=== PATIENT | male | born 1960 | race Caucasian/White ===

== ENCOUNTER 2025-01-14 23:17 | Inpatient (IN) | payer MEDICARE, SELFPAY ==
[2025-01-14] VITALS (11 sets, daily range): BP systolic 116–149; BP diastolic 76–94; BMI 24.4; BMI 23.6
[2025-01-14 22:02] LABS: % Basophils 0.2 % (0-2); % Eosinophils 0.9 % (0-6); % Immature Granulocytes 0.5 % (0-0.5); % Lymphocytes 22.3 % (20.5-51.1); % Monocytes 10.4 % (1.7-9.3); % Neutrophils 65.7 % (42.2-75.2); Absolute Eosinophils 0.1 10^3/uL (0-0.7); Absolute Immature Granulocytes 0.1 10^3/uL (0-0.05); Absolute Lymphocytes 2.3 10^3/uL (1.2-3.4); Absolute Monocytes 1.1 10^3/uL (0.1-0.6); Absolute Neutrophils 6.9 10^3/uL (1.4-6.5); Hematocrit 46.2 % (39.0-52.0); Hemoglobin 15.4 g/dL (13.0-18.0); Mean Corp Hgb Conc. 33.3 g/dL (33.0-37.0); Mean Corpuscular Hgb 32.2 pg (27.0-31.0); Mean Corpuscular Volume 96.5 fL (80.0-94.0); Mean Platelet Volume 9.2 fL (7.4-10.4); Nucleated Red Blood Cells % 0 % (-); Platelet Count 294 10^3/uL (130-400); Red Blood Cell Count 4.79 10^6/uL (4.70-6.10); Red Cell Dist. Width 13.8 % (11.5-14.5); White Blood Cell Count 10.5 10^3/uL (4.8-10.8)
[2025-01-14 22:11] LABS: ALT (SGPT) 20 U/L (0-50); AST (SGOT) 28 U/L (17-59); Albumin 3.3 g/dl (3.5-5.0); Alkaline Phosphatase 60 U/L (38-126); Blood Urea Nitrogen 29 mg/dl (9-20); Calcium 7.9 mg/dl (8.4-10.2); Carbon Dioxide 17 mmol/L (22-30); Chloride 105 mmol/L (98-107); Estimated Creatinine Clearance 31 ml/min; Glucose 117 mg/dl (70-99); Potassium 3.9 mmol/L (3.5-5.1); Sodium 134 mmol/L (135-145); Total Bilirubin 0.5 mg/dl (0.2-1.3); Total Protein 5.8 g/dl (6.3-8.2); eGFR 34.08
[2025-01-14 22:13] LABS: INR 0.89; PT 12.4 Sec (11.4-14.6)
--- NOTE | 2025-01-14 22:31 | ED.GENMED ---
History of Present Illness
General
Chief Complaint: Chest Pain
Source: patient
Time Seen by Provider: 01/14/25 22:14
History of Present Illness
History of Present Illness:
64-year-old male presents to the emergency room via ambulance. 911 was called by the patient for left arm numbness and weakness. Patient was Becka walking outside with symptoms develop. He fell and has a abrasion to the bridge of his nose. When
paramedics arrived the patient noted to have some left facial droop slurred speech and left arm weakness. The symptoms have resolved. However en route the patient began complaining of chest pressure. Prehospital EKG was consistent with an
anterior wall UT. Patient denies any previous cardiac history. He will receive 324 mg of aspirin and 1 sublingual nitro by paramedics. The nitro made his chest pain better. He rated it a 2 out of 4 upon arrival. While moving around to get
undressed his chest pain went up in intensity to a 4-5 out of 10. Patient does endorse smoking. He drinks a couple glasses of wine a night. He did have 1-1/2 glasses of wine this evening.
Phy Exam
Physical Exam
Physical Exam:
General: Awake, Alert, Oriented X3. No acute distress. Mildly slurred speech unclear if this is due to wanting or neurologic issue however he has no other focal neurologic findings at my time.
Vitals: unremarkable
Head: Atraumatic
Eyes: Pupils equal, EOMI
Throat: Airway intact, no exudates
Neck: Trachea midline
Lungs: Clear and equal b/l
Heart: Regular rate, no murmurs
Abd: Soft, Nontender, No pulsatile mass
Neuro: Cranial nerves intact, muscle strength equal bilaterally, cerebellar exam normal
Skin: Warm, dry, no rash
Extremities: pulses equal b/l, no edema
Scores
Heart Score for Chest Pain Patients
STEMI patient?: Yes
Course
Orders/Labs/Results
Orders:
Orders
01/14/25 21:48
EKG [Electrocardiogram (*1)] Urgent
Reason for Study: Chest Pain
Cardiac Monitoring- Treatment ONCE
EKG- Treatment ONCE
IV Insert/Care/Rem.- Treatment PRN
O2 Therapy [RESP] Urgent
Titrate/Wean O2 to maintain O2 sat greater than (%): 90
Special Instructions: Maintain sats >/=90%
Pulse Ox/spot Check [RESP] Urgent
Quantity: 1
Special Instructions: ON ROOM AIR
01/14/25 21:51
Complete Blood Count/With Diff Urgent
Comprehensive Metabolic Panel Urgent
Prothrombin Time Urgent
Troponin I Urgent
01/14/25 21:54
CT Head W/o Iv Contrast Stat
Comment:
Reason For Exam: fall
01/14/25 21:55
CT Angio Chest/Abd W/Wo Iv Contrast [CT Chest/abd Angio W/wo Iv Con] Stat
Comment:
Reason For Exam: chest pain, slurred speech, weakness
01/14/25 22:32
Ticagrelor [Brilinta] 180 mg .ROUTE .STK-MED ONE
01/14/25 22:33
Heparin 5,000 units .ROUTE .STK-MED ONE
Abnormal Lab Results
01/14/25 01/14/25 01/14/25
21:51 22:34 22:45
MCV 96.5 H fL
(80.0-94.0)
MCH 32.2 H pg
(27.0-31.0)
Abs Immat Gran (auto) 0.1 H 10^3/uL
(0-0.05)
Absolute Neuts (auto) 6.9 H 10^3/uL
(1.4-6.5)
Absolute Monos (auto) 1.1 H 10^3/uL
(0.1-0.6)
Monocytes % 10.4 H %
(1.7-9.3)
Sodium 134 L mmol/L
(135-145)
Carbon Dioxide 17 L mmol/L
(22-30)
BUN 29 H mg/dl
(9-20)
Creatinine 2.1 H mg/dL
(0.7-1.3)
Glucose 117 H mg/dl
(70-99)
Calcium 7.9 L mg/dl
(8.4-10.2)
Troponin I 3.270 H* ng/ml
Total Protein 5.8 L g/dl
(6.3-8.2)
Albumin 3.3 L g/dl
(3.5-5.0)
POC ACT Low Range 247 H Seconds 297 H Seconds
(116-155) (116-155)
01/14/25
23:04
MCV
MCH
Abs Immat Gran (auto)
Absolute Neuts (auto)
Absolute Monos (auto)
Monocytes %
Sodium
Carbon Dioxide
BUN
Creatinine
Glucose
Calcium
Troponin I
Total Protein
Albumin
POC ACT Low Range 292 H Seconds
(116-155)
01/14/25 21:51
01/14/25 21:51
Vital Signs
Initial and Last Documented VS:
Initial Vital Signs
BP
118/83
01/14/25 21:52
Last Documented Vital Signs
Temp Pulse Resp BP Pulse Ox
97.8 F 79 17 137/84 98
01/14/25 21:57 01/15/25 00:45 01/15/25 00:45 01/15/25 00:27 01/15/25 00:45
MDM/Problems Addressed
Differential Diagnosis Includes:
Aortic dissection, STEMI, hypercoagulable state
MDM/Problems Addressed:
Patient presents to the emergency room with ST elevation on a prehospital EKG. He was a prehospital STEMI alert. He also had focal neurologic findings prehospital. On my neurologic exam here he does not appear to have any focal neurologic
findings. Patient was quickly sent to CAT scan for CT of his head as well as a CTA of the aorta to exclude dissection. Given the fact the patient's neurologic findings have significantly improved or resolved and he continues to have ST elevation
aggressive treatment of his UT seems the appropriate treatment. Therefore patient heparinized given Brilinta and will go to the Pediatric Pathologist. Dr. Giraldo for interventional cardiology came and evaluated the patient and agreed to take him to the Cath
Lab. The delay from prehospital STEMI alert called to getting to the Pediatric Pathologist is related to the need to exclude other serious pathology in particular thoracic dissection or an intracranial bleed. l
*Radiology
Radiology exam reviewed: radiology read reviewed
*Pulse Oximetry
Patient hypoxic: no
*EKG
Interpreted by ED Provider?: Yes
Heart Rate: 71
Rate: normal
Rhythm: sinus
[place]: normal axis
Interval: normal interval
Ischemia: ST elevation (st elevation in v2, v3, v4, aVL with reciprocal changes in inf leads.)
*Laboratory Veterinarian Interpretation
Rate: normal
Interpretation: normal
Rhythm: sinus
*Critical Care Note
Total Time (30-74mins, 75-104mins- exclusive of procedures): 50 min
comment:
Critical care statement: A total of 50 minutes of critical care time was provided for this patient. This includes management of unstable vital signs, evaluation of the patient at bedside, reviewing the patient's pertinent medical records, discussion
with consultants, review of old EKGs and review of pertinent medical records. This time with separate from time utilized to perform the aforementioned documented procedures
Patient Management
Social determinants of health affecting care: Poor outpatient follow-up
ED Attending Note
-
Portions of this chart may have been created with voice recognition software.� Occasional wrong word or��sound alike� substitutions may have occurred due to the inherent limitations of voice recognition software.
Discharge Plan
Departure
Patient Disposition: [facility]EL[facility]
Date of Disposition: 01/14/25
Time of Disposition: 22:31
Admit to: [facility]
Presentation/result/management discussed w/ accepting MD/DO: Dr. Giraldo
Condition: Serious
Discharge Problem:
Acute UT, Brain TIA
Interventions
Interventions:
*Risk Screen - Suicide Last Done: 01/14/25 22:44
*General Assessment Last Done: 01/14/25 22:44
*Neglect/Abuse Screening Last Done: 01/14/25 22:44
ED- Fall Risk Assessment Last Done: 01/14/25 22:07
*ED COVID-19 Vaccine History Last Done: 01/14/25 22:44
*Nursing Disposition Last Done: 01/14/25 22:44
ED- Cardiac Assessment Last Done: 01/14/25 22:07
Discharge Date and Time
Discharge Date/Time: 01/14/25 22:25
[2025-01-14 22:39] LABS: ACT-LR - POC 247 Seconds (116-155)
[2025-01-14 22:50] LABS: ACT-LR - POC 297 Seconds (116-155)
[2025-01-14 23:09] LABS: ACT-LR - POC 292 Seconds (116-155)
--- NOTE | 2025-01-14 23:38 | ITS.CL.CATH ---
Type Copyist - Catheterization
Cardiac Catheterization
Procedure Report:
LEFT HEART CATH AND CORONARY INTERVENTION
Date of Procedure: January 14, 2025
Referring: [facility] Emergency Department
PROCEDURES:
1. Coronary angiography (potential LV apical thrombus on CT scan)
2. Successful stenting of the proximal to mid LAD with a 3.5 x 34 mm Atlantic stent that was implanted at nominal pressures and postdilated to high pressures with a 3.5 mm noncompliant balloon
INDICATION: This is a 64-year-old gentleman with a past medical history notable for hypertension, hyperlipidemia and chronic renal insufficiency who presented to [facility] with an unusual story. He had been out searching for his dog when
he noticed some left arm heaviness and clumsiness. He experienced a transient loss of consciousness. 911 was called. When paramedics arrived they noticed some left arm weakness and facial droop which had resolved by the time he arrived to
[facility]. He also reported substernal chest tightness and a prehospital electrocardiogram was notable for anterior segment ST elevation. A prehospital STEMI alert was activated. Upon arrival the patient's neurologic symptoms had
largely resolved and his electrocardiogram was notable for anterior ST segment elevation as well as ST segment elevation in lead I and aVL. He became chest pain-free but with minimal movement experienced recurrent occurrence of his substernal chest
pressure. Given the neurologic symptoms a stat CT scan of the head and CT angiogram of the chest was performed to exclude an aortic dissection or intracranial bleed. The CT scan of the head demonstrated no evidence of bleed and the CT angiogram of
the chest had no evidence of an aortic dissection. Door to balloon time was somewhat delayed given the need for these additional imaging studies.
ACCESS: Right radial artery, 6 Turkmen sheath
HEMODYNAMICS (mmHg):
AO (s/d, m) : 129/74
CORONARY FINDINGS
Dominance: Right
LEFT MAIN: Normal
LEFT ANTERIOR DESCENDING: The LAD arises normally from the left main. There is a 50% proximal stenosis in the LAD. There is a very eccentric 95% stenosis in the mid LAD involving the origin of a moderate caliber diagonal branch. The remainder of
the LAD has minor irregularities in the distal vessel wraps completely around the apex supplying a significant portion of the inferior wall.
RAMUS: Mild haziness at its ostium. Moderate caliber vessel.
CIRCUMFLEX: The circumflex is a medium caliber nondominant vessel with mild haziness near its origin. The circumflex gives rise to a single terminal obtuse marginal branch.
RIGHT CORONARY: The right coronary artery is a dominant tortuous vessel with only minor irregularities noted over its course. The posterolateral branch is large. The PDA is a medium caliber vessel that is patent
VENTRICULOGRAPHY: Not done due to elevated creatinine and concern for LV apical thrombus
ANGIOPLASTY PROCEDURE DETAIL: Intravenous heparin was administered and the ACT was monitored during the procedure. The patient received a loading dose of aspirin and ticagrelor while in the emergency department.
The origin of the left main was cannulated with a 6 Turkmen EBU 3.5 guiding catheter. Initial attempts at placement of an XB 3.5 were unsuccessful and the guide was changed for an EBU 3.5 catheter which sat in the left main and provided reasonable
support. A short BMW guidewire was advanced across the stenosis in the mid LAD and into the diagonal branch. A long BMW guidewire across the mid LAD stenosis and was advanced to the apical LAD. Primary stenting was performed with placement of a
3.5 x 34 mm Atlantic stent which was implanted at nominal pressures and postdilated with a 3.5 mm noncompliant balloon with a nice angiographic result
RADIATION SUMMARY: Fluoro Time (min): 10.1, Dose (mGy): 412, DAP (Gy.cm2) : 33
CONCLUSIONS
1. Successful stenting of the ostial to mid LAD with a 3.5 x 34 mm Trip stent that was postdilated to high pressures with a 3.5 mm noncompliant balloon
RECOMMENDATIONS
1. Will trend serial troponin levels and obtain fasting lipid profile in the morning. Will need to watch renal function closely given underlying renal insufficiency and baseline creatinine here at [facility] of 2.1 mg/dL
2. Will continue to follow neurologic symptoms. The neurologic symptoms experienced at the onset of the event have resolved
3. Echocardiogram in a.m.
4. High intensity statin therapy
5. Dual antiplatelet therapy for 1 year uninterrupted
Copy to: Dr. Phi Giraldo
[2025-01-14 23:59] LABS: Glucose - Point of Care 120 mg/dl (70-99)
[2025-01-15] VITALS (12 sets, daily range): BP systolic 108–147; BP diastolic 71–101
[2025-01-15] MEDS: NSS 500 IV (00:15)
[2025-01-15] MEDS: LIPITOR 80 MG PO ×2 (00:20→17:30)
--- NOTE | 2025-01-15 00:30 | PTCARENOTE ---
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 Patient A+A+Ox3. No neurological deficits noted. Patient with c/o left hand weakness, numbness and tingling. Neurological assessment completed with two RN's at bedside - Stroke NeuroCheck/NIHSS completed.
NIHSS score 0. Room air. SpO2 98% on right hand/finger. Right radial TR Band intact - Air to be taken out per protocol and documented. Positive circulation, sensation and mobility to right upper extremity. Positive, palpable pulses. No c/o
pain or discomfort. Sinus Rhythm. Heart rate 60-80's. Patient with no c/o chest pain, pressure or discomfort. Normoactive bowel sounds. No BM. No c/o nausea. No vomiting. Voiding clear yellow urine without difficulty in urinal. Bedrest.
IVF 500 ml 0.9% NSS at 100 ml/hr. Assessment as documented.
--- NOTE | 2025-01-15 04:30 | PTCARENOTE ---
0400 TR Band removed by PA for CT Surgery, Blair Wei PA-C. Swollen area proximal to TR Band - Manual pressure applied for 10 minutes. Dressing applied to right radial site. Patient with positive circulation, sensation and mobility to right
upper extremity. Patient resting in bed without difficulty. Assessment/Interventions as documented.
[2025-01-15] MEDS: TYLENOL 650 MG PO (05:00)
--- NOTE | 2025-01-15 06:15 | PTCARENOTE ---
Patient A+A+Ox3. No c/o left arm/hand numbness or tingling. AM lab work collected and sent. Left forearm noted to be slightly swollen and slightly ecchymotic. No c/o pain or discomfort. No c/o chest pain, pressure or discomfort. AM EKG
obtained. Assessment/Interventions as documented.
[2025-01-15 06:29] LABS: Hematocrit 44.5 % (39.0-52.0); Hemoglobin 15.3 g/dL (13.0-18.0); Mean Corp Hgb Conc. 34.4 g/dL (33.0-37.0); Mean Corpuscular Volume 95.9 fL (80.0-94.0); Mean Platelet Volume 9.6 fL (7.4-10.4); Platelet Count 275 10^3/uL (130-400); Red Blood Cell Count 4.64 10^6/uL (4.70-6.10); Red Cell Dist. Width 13.7 % (11.5-14.5); White Blood Cell Count 10.8 10^3/uL (4.8-10.8)
[2025-01-15 06:59] LABS: Blood Urea Nitrogen 27 mg/dl (9-20); Calcium 8.9 mg/dl (8.4-10.2); Carbon Dioxide 16 mmol/L (22-30); Chloride 104 mmol/L (98-107); Estimated Creatinine Clearance 33 ml/min; Glucose 95 mg/dl (70-99); HDL Cholesterol 49 mg/dl; LDL Cholesterol, Calculated 57 mg/dl; Potassium 4.8 mmol/L (3.5-5.1); Sodium 131 mmol/L (135-145); Total Cholesterol 134 mg/dl (50-199); Triglyceride 143 mg/dl (10-149); Very Low Density Lipoprotein 28 mg/dl (0-30); eGFR 36.13
[2025-01-15] MEDS: BUMEX 1 MG PO (08:33)
[2025-01-15] MEDS: LOW STRENGTH ASPIRIN 81 MG PO (08:33)
[2025-01-15] MEDS: TOPROL XL 50 MG PO ×2 (08:33→20:18)
[2025-01-15] MEDS: BRILINTA 90 MG PO ×2 (08:33→20:19)
[2025-01-15] MEDS: PROTONIX 40 MG PO (08:33)
[2025-01-15] MEDS: NORVASC 5 MG PO (08:33)
--- NOTE | 2025-01-15 08:45 | PTCARENOTE ---
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 AAO x 3, tired this am but denies pain. LT hand function 100% but pt states fingers feel 'tight'. NIH completed and 0. SR on monitor. Room air 98%. Pulses palpable. Facial abrasion c,d,i. Will
monitor
[2025-01-15 09:22] LABS: Glycohemoglobin (HgbA1c) 5.3 % (4.0-5.6)
--- NOTE | 2025-01-15 12:11 | W.PN.CARDCBS ---
Today's Communication / Plan
-
Check echo
Given left hand weakness, will ask neurology to evaluate the patient
MRI brain pending
Impression / Plan
-
Assessment:
Presenting with weakness/stroke like symptoms
Anterior STEMI
LAD PCI
Possible LV thrombus
HTN
HLD
CKD
Echo: Pending
Plan:
-Patient called EMS due to left hand numbness/weakness and was identified as having slurred speech
-Prehospital EKG showed acute anterior infarct pattern
-CT head was unremarkable
-CTA chest with no dissection but suggestive of possible LV thrombus
-Patient was taken urgently for invasive coronary angiography and mid LAD culprit lesion was treated with drug-eluting stent
-Medical management of CAD with aspirin/Brilinta/high intensity statin/beta-kingsley
-Check echo to assess LV function and evaluate for LV thrombus
-Eventual cardiac rehab
-In regards to his left hand weakness, patient tells me symptoms are significantly improved but he still feels that his dexterity is decreased in the left hand
-MRI brain pending
-Will ask neurology to evaluate the patient
Progress Note - Inventory Clerk
Subjective
Date of Service: January 15, 2025
Resting comfortably today in the CVICU. No chest discomfort. No shortness of breath, dyspnea on exertion, orthopnea or PND.
Still reporting some numbness and decreased dexterity in the left hand but significantly improved from prior.
Objective
Labs:
01/15/25 06:01
01/15/25 06:01
Labs
Hgb 15.3 g/dL (13.0-18.0) 01/15/25 06:01
Hct 44.5 % (39.0-52.0) 01/15/25 06:01
Plt Count 275 10^3/uL (130-400) 01/15/25 06:01
PT 12.4 Sec (11.4-14.6) 01/14/25 21:51
INR 0.89 01/14/25 21:51
Sodium 131 mmol/L (135-145) L 01/15/25 06:01
Potassium 4.8 mmol/L (3.5-5.1) 01/15/25 06:01
BUN 27 mg/dl (9-20) H 01/15/25 06:01
Creatinine 2.0 mg/dL (0.7-1.3) H 01/15/25 06:01
Glucose 95 mg/dl (70-99) 01/15/25 06:01
Troponins
01/14/25 01/14/25 01/15/25
21:51 23:37 06:01
Troponin I 3.270 H* 3.470 H* 10.000 H* D
Vital Signs and I&O:
Vital Signs
Temp Pulse Resp BP Pulse Ox
98.0 F 68 20 141/80 94
01/15/25 08:00 01/15/25 08:33 01/15/25 08:30 01/15/25 08:33 01/15/25 08:15
Vital Signs
Temp Pulse Resp BP Pulse Ox
98.0 F 68 20 141/80 94
01/15/25 08:00 01/15/25 08:33 01/15/25 08:30 01/15/25 08:33 01/15/25 08:15
Intake & Output
01/13/25 01/14/25 01/15/25 01/16/25
06:59 06:59 06:59 06:59
Intake Total 980 / 980 240 / 240
Output Total 1100 / 1100 350 / 350
Balance -120 / -120 -110 / -110
Physical Exam
Physical Exam
Gen: NAD, AAOx3
HEENT: NC/AT, sclera anicteric
Neck: No JVD
CV: RRR, NL s1/s2, no M/R/G
Lungs: CTAB
Abd: S/ND
Ext: No LE edema
Skin: Warm, dry
Neuro: Non-focal
--- NOTE | 2025-01-15 12:11 | CM ---
Reviewed chart. Met with Mr. Meyer to review discharge plans. He states prior to admission he resides alone in a one story home with three steps to enter. He states prior to admission he was independent with ambulation and adls. He states he
does not have any DME in the home. He states he has a prescription plan with [employer], ([phone]) Telephone call to [employer] to check on coverage for Brilinta 90 mg po bid. His co-pay for 30 day retail is $88.73 and his co-pay for
mail order 90 is $150.00. Once he gets to $2000.00 out of pocket cost he would have a zero co-pay. Reviewed co-pay with him. He feels they maybe to expensive. He would like to review with medical team. Medical work-up in progress. The discharge
plan is to return home when medically stable.
--- NOTE | 2025-01-15 12:16 | CARDSERVLU ---
Echocardiogram with Lumason completed after protocol screening completed. Allergies verified.
Patent IV site: LAC (existing IV)
IV site flushed with 0.9% NaCl pre and post administration.
Diluted bolus method utilized to enhance visualization of ventricular falk.
Total volume given: 3 mL
Patient tolerated all procedures well without complications.
--- NOTE | 2025-01-15 12:54 | CON.NEURO ---
Consultation
Order
Date of Consultation: 01/15/25
Requesting Provider: Yumiko Goodman PA-C
Reason for Consult: Unspecified
Neurology Consultation Note.
HPI: This is a 64-year-old right-handed man who presented to [facility] 01/14/2025 with a fall and left-sided incoordination/weakness according to the patient his symptoms began suddenly around 8 or 9 PM yesterday while watching TV.
The patient initially experienced a 'funny' sensation in the left arm, which then became 'floppy and heavy.' 'I could not hold myself'. Subsequently, the patient developed slurred speech. The left hand weakness has improved significantly. The
speech difficulties have resolved completely. The patient denies any similar episodes in the past.
Concurrent with the onset of symptoms, the patient experienced an unwitnessed fall while walking his dog. He tripped on the deck, striking his nose, and was unable to get up, having to crawl back into the house. The patient denies any prodromal
symptoms prior to the event onset. They report consuming one and a half glasses of wine on the night of the incident.
The patient was not on aspirin prior to admission.
ER VS: 118/83, 72, afebrile.
EKG:NSR, QTc Int : 464 ms
PDMP:none
Labs: Glucose�247�297, hemoglobin A1c�5.3, troponin�3.27�3 0.47�10, LDL�57, creatinine�2.1, sodium�134-131,
CT head wo contrast-mild leukomalacia
According to EMR patient was seen for facial injury on December 26, 2024.
PMH: Melanoma, HTN, DLP, CKD, left kidney atrophy, GERD, BPH
PSH: LAD PTCI (01/14/2025), melanoma resection TURP
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
FH: Not contributory to current presentation
All:NSAIDs
ROS: Constitutional: Negative. Negative for chills, fever and unexpected weight change.
HENT: Positive for hearing impairment and nasal congestion
Eyes: Negative. Negative for photophobia, pain and visual disturbance.
Respiratory: Negative for cough, choking and shortness of breath.
Cardiovascular: Negative for chest pain, palpitations and leg swelling.
Gastrointestinal: Negative for abdominal pain and vomiting.
Endocrine: Negative. Negative for cold intolerance.
Genitourinary: Negative for dysuria, flank pain and urgency.
Musculoskeletal: Negative for back pain, gait problem, neck pain and neck stiffness.
Skin: Positive for nasal and forehead abrasion
Allergic/Immunologic: Negative. Negative for immunocompromised state.
Neurological: Positive for left-sided weakness and transient dysarthria
Psychiatric/Behavioral: Negative for behavioral problems, confusion and hallucinations.
General: Well developed. In no acute distress.
Cardio: Regular rate and rhythm without murmur. Extremities are without cyanosis or edema.
Neuro:
Mental Status: Alert, oriented to person, place. Impaired attention and preserved comprehension good fund of knowledge. Follows complex requests across the midline. Comprehension, naming, and repetition intact.
Cranial Nerves: Pupils are equally round and reactive to light. EOMs full. Visual marquez full to confrontation. No ptosis. No nystagmus. V1-V3 intact to light touch and pinprick bilaterally, symmetric. Face symmetric. Minimal impaired
hearing AU. The palate elevated well. SCMs and traps 5/5. Tongue midline. No dysarthria.
Motor: Normal bulk and tone. No pronator or arm drift. Strength 5/5 throughout. No clonus.
Reflexes: 3 + in UE/LE, Yan's-neg BL.
Sensory: Normal pinprick, vibration and JPS.
Coordination: Reduced fine finger movements of the left no dysmetria or tremor.
Gait: deferred
Left forehead and nasal linear abrasions.
Assessment and Plan:
I. R lacunar syndrome( dysarthria-clumsy hand syndrome)
II. Mild encephalopathy.
III. History of melanoma
IV. Hyperreflexia
V. NSTEMI
-Continue Telemetry monitoring
-Aspiration precautions
-Brain MRI without jacinto
-Would defer antiplatelet management to cardiology
-LDL goal less than 100.
-Please check urine tox, vitamin B12, folate
-Start thiamine
-PT.
-DVT prophylaxis.
I personally reviewed all radiology and labs along with past medical records pertinent to current medical problems. Total time spent in patient care is 60 minutes.
Thank you for allowing us to participate in the care of this patient. We will continue to follow. Please do not hesitate to contact us with any questions or concerns.
Subjective/Objective
Subjective Data
Date of Service: January 15, 2025
Objective Data
Vital Signs
Temp Pulse Resp BP Pulse Ox
36.7 C 68 20 141/80 94
01/15/25 08:00 01/15/25 08:33 01/15/25 08:30 01/15/25 08:33 01/15/25 08:15
Lab Results
01/15/25 06:01
01/15/25 06:01
PT 12.4 Sec (11.4-14.6) 01/14/25 21:51
INR 0.89 01/14/25 21:51
Sodium 131 mmol/L (135-145) L 01/15/25 06:01
Potassium 4.8 mmol/L (3.5-5.1) 01/15/25 06:01
BUN 27 mg/dl (9-20) H 01/15/25 06:01
Glucose 95 mg/dl (70-99) 01/15/25 06:01
Calcium 8.9 mg/dl (8.4-10.2) 01/15/25 06:01
LDL Cholesterol, Calc 57 mg/dl 01/15/25 06:01
Patient Allergies
NSAIDS (Non-Steroidal Anti-Inflamma Allergy (Verified 01/14/25 21:55)
Unknown
Medications
-
Active Medications
Generic Name Dose Route Start Last Admin
Trade Name Freq PRN Reason Stop Dose Admin
Acetaminophen 650 mg 01/14/25 23:18 01/15/25 05:00
Acetaminophen 325 Mg Tablet PO 02/11/25 23:17 650 mg
Q4HPRN PRN Administration
mild pain
Amlodipine Besylate 5 mg 01/15/25 08:00 01/15/25 08:33
Amlodipine 5 Mg Tablet PO 02/12/25 07:59 5 mg
DAILY GOPAL Administration
Aspirin 81 mg 01/15/25 08:00 01/15/25 08:33
Aspirin 81 Mg Chewable Tablet PO 02/12/25 07:59 81 mg
DAILY GOPAL Administration
Atorvastatin Calcium 80 mg 01/14/25 23:30 01/15/25 00:20
Atorvastatin (Lipitor) 80 Mg Tablet PO 02/11/25 23:29 80 mg
QPM GOPAL Administration
Bumetanide 1 mg 01/15/25 08:00 01/15/25 08:33
Bumetanide 1 Mg Tablet PO 02/12/25 07:59 1 mg
DAILY GOPAL Administration
Enoxaparin Sodium 40 mg 01/15/25 18:00
Enoxaparin Sodium 40 Mg/0.4 Ml Syringe SC 02/12/25 17:59
QPM GOPAL
Metoprolol Succinate 50 mg 01/15/25 08:00 01/15/25 08:33
Metoprolol 50 Mg Extended Release Tablet PO 02/12/25 07:59 50 mg
BID GOPAL Administration
Pantoprazole Sodium 40 mg 01/15/25 08:00 01/15/25 08:33
Pantoprazole 40 Mg Delayed Release Tablet PO 02/12/25 07:59 40 mg
DAILY GOPAL Administration
Sodium Chloride 0 flush 01/14/25 23:00
Sodium Chloride 0.9% (Flush) Syringe IV 02/11/25 22:59
PER PROTOCOL GOPAL
Ticagrelor 90 mg 01/15/25 08:00 01/15/25 08:33
Ticagrelor (Brilinta) 90 Mg Tablet PO 02/12/25 07:59 90 mg
BID GOPAL Administration
Home Medications
�Medication �Instructions �Recorded
Vitamin D3 01/15/25
amlodipine 10 mg tablet 10 mg PO DAILY 01/15/25
atorvastatin 20 mg tablet 20 mg PO QPM 01/15/25
bumetanide 1 mg tablet 1 mg PO DAILY 01/15/25
metoprolol tartrate 100 mg tablet 100 mg PO DAILY 01/15/25
sodium bicarbonate 650 mg tablet 650 mg PO DAILY 01/15/25
terazosin 10 mg capsule 10 mg PO QPM 01/15/25
Vital Signs and Labs
-
Vital Signs and Labs:
Vital Signs
Temp Pulse Resp BP Pulse Ox
36.7 C 68 20 141/80 94
01/15/25 08:00 01/15/25 08:33 01/15/25 08:30 01/15/25 08:33 01/15/25 08:15
Lab Results
01/15/25 06:01
01/15/25 06:01
PT 12.4 Sec (11.4-14.6) 01/14/25 21:51
INR 0.89 01/14/25 21:51
Sodium 131 mmol/L (135-145) L 01/15/25 06:01
Potassium 4.8 mmol/L (3.5-5.1) 01/15/25 06:01
BUN 27 mg/dl (9-20) H 01/15/25 06:01
Glucose 95 mg/dl (70-99) 01/15/25 06:01
Calcium 8.9 mg/dl (8.4-10.2) 01/15/25 06:01
LDL Cholesterol, Calc 57 mg/dl 01/15/25 06:01
Medications
-
Medications:
Generic Name Dose Route Start Last Admin
Trade Name Freq PRN Reason Stop Dose Admin
Acetaminophen 650 mg 01/14/25 23:18 01/15/25 05:00
Acetaminophen 325 Mg Tablet PO 02/11/25 23:17 650 mg
Q4HPRN PRN Administration
mild pain
Amlodipine Besylate 5 mg 01/15/25 08:00 01/15/25 08:33
Amlodipine 5 Mg Tablet PO 02/12/25 07:59 5 mg
DAILY GOPAL Administration
Aspirin 81 mg 01/15/25 08:00 01/15/25 08:33
Aspirin 81 Mg Chewable Tablet PO 02/12/25 07:59 81 mg
DAILY GOPAL Administration
Atorvastatin Calcium 80 mg 01/14/25 23:30 01/15/25 00:20
Atorvastatin (Lipitor) 80 Mg Tablet PO 02/11/25 23:29 80 mg
QPM GOPAL Administration
Bumetanide 1 mg 01/15/25 08:00 01/15/25 08:33
Bumetanide 1 Mg Tablet PO 02/12/25 07:59 1 mg
DAILY GOPAL Administration
Enoxaparin Sodium 40 mg 01/15/25 18:00
Enoxaparin Sodium 40 Mg/0.4 Ml Syringe SC 02/12/25 17:59
QPM GOPAL
Metoprolol Succinate 50 mg 01/15/25 08:00 01/15/25 08:33
Metoprolol 50 Mg Extended Release Tablet PO 02/12/25 07:59 50 mg
BID GOPAL Administration
Pantoprazole Sodium 40 mg 01/15/25 08:00 01/15/25 08:33
Pantoprazole 40 Mg Delayed Release Tablet PO 02/12/25 07:59 40 mg
DAILY GOPAL Administration
Sodium Chloride 0 flush 01/14/25 23:00
Sodium Chloride 0.9% (Flush) Syringe IV 02/11/25 22:59
PER PROTOCOL GOPAL
Thiamine HCl 100 mg 01/15/25 14:00
Thiamine 100 Mg Tablet PO 02/12/25 13:59
DAILY GOPAL
Ticagrelor 90 mg 01/15/25 08:00 01/15/25 08:33
Ticagrelor (Brilinta) 90 Mg Tablet PO 02/12/25 07:59 90 mg
BID GOPAL Administration
Home Medications
-
Home Medications
Vitamin D3 01/15/25
amlodipine 10 mg tablet 10 mg PO DAILY 01/15/25
atorvastatin 20 mg tablet 20 mg PO QPM 01/15/25
bumetanide 1 mg tablet 1 mg PO DAILY 01/15/25
metoprolol tartrate 100 mg tablet 100 mg PO DAILY 01/15/25
sodium bicarbonate 650 mg tablet 650 mg PO DAILY 01/15/25
terazosin 10 mg capsule 10 mg PO QPM 01/15/25
--- NOTE | 2025-01-15 13:37 | PTCARENOTE ---
Ambulating at ivan in room and hallway. denies pain. NSR. VSS Assessment unchanged from prior
[2025-01-15] MEDS: VITAMIN B1 PO (14:51)
[2025-01-15 15:41] LABS: Folate 8.6 ng/ml (2.76-20); Vitamin B12 430 pg/ml (239-931)
--- NOTE | 2025-01-15 16:21 | W.PN.HOSP.TC ---
Addendum entered and electronically signed by Rima Leo MD 01/15/25 18:57:
patient did not lose consciousness but fell at home prior to coming in.
Original Note:
Today's Communication/Plan
-
see plan
Assessment / Plan
Assessment / Plan
Mr. Marino Meyer with hx essential HTN, HLD, CKD who presents to the ER by ambulance on 01/14 for sudden onset loss of consciousness, left arm weakness and difficulty ambulating. Upon arrival to the ER, symptoms largely resolved but he complained of
chest pressure and EKG showed STEMI.
HEAD CT 01/14/25
IMPRESSION:
No evidence of acute intracranial abnormality.
CHEST/ABDOMEN CTA 01/14/25
IMPRESSION: Examination is negative for thoracic or abdominal aortic dissection. Examination is negative for aortic aneurysm.
Decreased enhancement of the apex and distal left ventricle, in this patient with reported history of clinical diagnosis of myocardial infarction. There is a rounded focus of decreased enhancement within the left ventricular apex, which is likely
left ventricular thrombus.
Coronary artery calcifications are present. Please correlate with symptoms of and risk factors for coronary artery disease, with further workup as clinically appropriate.
5 mm focus of arterial phase enhancement within the inferior right lobe of the liver. Statistically, small arterial foci of enhancement are very likely benign, and no further imaging follow-up is felt to be needed.
Moderate to severe atrophy of the left kidney. Bilateral patchy scarring of the kidneys.
CARDIAC CATH 01/14/25
CONCLUSIONS
1. Successful stenting of the ostial to mid LAD with a 3.5 x 34 mm Trip stent that was postdilated to high pressures with a 3.5 mm noncompliant balloon
BRAIN MRI 01/15/25
IMPRESSION:
1. MULTIPLE (approximately 10) SMALL ACUTE ISCHEMIC INFARCTS regionally distributed throughout the CORTICAL FLORES MATTER and SUBCORTICAL WHITE MATTER of the RIGHT FRONTAL and PARIETAL LOBES.
2. 2.5 mm chronic lacunar infarct in the right thalamus.
3. Moderate white matter leukoaraiosis in the frontal and parietal lobes.
4. Chronic microvascular ischemic disease in the marilyn.
5. Mild diffuse cerebral and cerebellar volume loss.
6. Severe discogenic degenerative disease at C3/C4 with a moderate-sized disc-osteophyte complex causing mild spinal cord compression and central canal stenosis.
TTE 01/15/25
CONCLUSIONS
1. Mild concentric left ventricular hypertrophy. Moderately reduced left
ventricular systolic function. Estimated left ventricular ejection fraction is
30 to 35% by visual assessment. Hypokinesis of the mid to apical anterior,
anteroseptal and anterolateral falk.
2. Normal right ventricular size and systolic function.
3. No significant valvular abnormalities.
4. No pericardial effusion.
No prior echocardiogram available for comparison.
STEMI
-s/p cardiac cath on 01/14 with stending to mid LAD
-continue aspirin/ Brilinta/ Statin
-continue metoprolol 50XL BID
-appreciate cardiology consult
Multiple small acute ischemic infarcts
-continue aspirin/Brilinta
-monitor on telemetry
-carotid US ordered
-neuro checks
-PT/OT/ST
-appreciate neurology consult
Heart Failure reduced EF
-ASPARAGUS CUTTER Bumex
-EF 30-35% on TTE with WMA
-will need GDMT, follow up further cardiology recommendations
CKD
-ASPARAGUS CUTTER sodium bicarb
DVT PPx lovenox subQ
FULL CODE
51 minutes spent on patient care
Anticipated Discharge: 24 - 48 hours
Subjective/Interval History
-
Date of Service: January 15, 2025
no difficulty speaking
no chest pain
loss of fine motor control left hand
Objective Data
-
Labs:
Laboratory Results
01/15/25
06:01
WBC 10.8
Hgb 15.3
Hct 44.5
Plt Count 275
Sodium 131 L
Potassium 4.8
Chloride 104
Carbon Dioxide 16 L
BUN 27 H
Creatinine 2.0 H
Glucose 95
Calcium 8.9
Vital Signs:
Vital Signs
Temp Pulse Resp BP Pulse Ox
98.2 F 62 16 141/84 96
01/15/25 15:57 01/15/25 13:30 01/15/25 12:00 01/15/25 12:32 01/15/25 15:57
I&O
01/14/25 01/15/25 01/16/25
06:59 06:59 06:59
Intake Total 980 / 980 240 / 240
Output Total 1100 / 1100 750 / 750
Balance -120 / -120 -510 / -510
Review of Systems
-
History Source: Patient
All other systems: Reviewed and negative
Physical Exam
-
General: No Apparent Distress
HEENT: PERRLA
Respiratory: Clear to Auscultation; Negative Wheezes
Cardiac: Regular Rhythm and S1/S2
GI: Soft and Nontender
Musculoskeletal: No Edema
Skin: Warm and Dry; Negative Rash
Neuro: AO x 3 and Other (no facial asymmetry, no pronator drift, 5/5 strength b/l LE, difficulty fine motor LUE )
Psych: Calm
Data Reviewed
-
Diagnostic Radiology: Report Reviewed by me
Labs: Labs Reviewed by me
[2025-01-15 16:29] LABS: Amphetamines Negative (Negative); Barbiturates Negative (Negative); Benzodiazepines Negative (Negative); Buprenorphine Negative (Negative); Cocaine Positive (Negative); Marijuana Negative (Negative); Methadone Negative (Negative); Methamphetamines Negative (Negative); Opiates Negative (Negative); Phencyclidine Negative (Negative); Tricyclic Antidepressants Negative (Negative)
--- NOTE | 2025-01-15 16:37 | W.PN.UPDATE ---
Update Note
Progress Note Update
brain MRI resulted with multiple ~10 acute ischemic infarcts on R, also with evidence of prior lacunar infarcts. reports significant improvement in LUE weakness compared to yesterday. for now on asadilcia. d/w neurology, plan to continue DAPT at
present. will follow rhythm on tele. pre hospital EKG was SR and thus far no atrial arrhythmia noted. discussed findings with patient. will plan to transfer patient to hospitalist service given acute CVAs.
[2025-01-15 16:45] LABS: Fentanyl, Urine Negative (Negative)
[2025-01-15] MEDS: LOVENOX 40 MG SC (17:29)
--- NOTE | 2025-01-15 20:24 | PTCARENOTE ---
Report called to IVU RN at 2009. Pt awake, alert, oriented x 4. Speech clear. Moves all extremities equally. No current c/o L hand weakness or paresthesias. Pt on room air. Sat 97%. SR, rate 67 bpm. Normotensive. BP 108/71. Pt belongings gathered.
Transferred in wheelchair with RN. Scheduled meds given. Pt without c/o pain, dyspnea. Remained on desk monitor during transport.
--- NOTE | 2025-01-15 21:22 | PTCARENOTE ---
[facility] Patient A&Ox3. NIH Scale score 0, Neuro check unremarkable. BP 121/80, NSR 60s-70s, 96% on room air. Patient denies any chest pain at this time. Discussed plan of care for evening. Patient verbalized
understanding. Call smith within reach.
[2025-01-16] VITALS (8 sets, daily range): BP systolic 120–150; BP diastolic 69–93; PULSE 67; O2SAT 98
--- NOTE | 2025-01-16 02:42 | DOWNTIME ---
There was a Taggled Client [employer] Installer Downtime on 01/16/2025 from 0100 to 01/16/2024 at 0235 . Downtime documentation of patient's care, including medication administrations, has been reconciled in the electronic record per guidelines. Refer to the
patient's paper chart under the miscellaneous tab to see printed paper medication records and downtime forms.
[2025-01-16 04:48] LABS: Hematocrit 44.5 % (39.0-52.0); Hemoglobin 15.4 g/dL (13.0-18.0); Mean Corp Hgb Conc. 34.6 g/dL (33.0-37.0); Mean Corpuscular Hgb 32.8 pg (27.0-31.0); Mean Corpuscular Volume 94.9 fL (80.0-94.0); Mean Platelet Volume 9.5 fL (7.4-10.4); Platelet Count 283 10^3/uL (130-400); Red Blood Cell Count 4.69 10^6/uL (4.70-6.10); White Blood Cell Count 9.7 10^3/uL (4.8-10.8)
[2025-01-16 05:11] LABS: Blood Urea Nitrogen 29 mg/dl (9-20); Carbon Dioxide 19 mmol/L (22-30); Chloride 106 mmol/L (98-107); Estimated Creatinine Clearance 29 ml/min; Glucose 107 mg/dl (70-99); Magnesium 2.1 mg/dl (1.6-2.3); Potassium 4.4 mmol/L (3.5-5.1); Sodium 134 mmol/L (135-145); eGFR 30.55
--- NOTE | 2025-01-16 07:51 | W.PN.HOSP.TC ---
Today's Communication/Plan
-
see plan
Assessment / Plan
Assessment / Plan
. Marino Meyer with hx essential HTN, HLD, CKD who presents to the ER by ambulance on 01/14 for sudden onset loss of consciousness, left arm weakness and difficulty ambulating. Upon arrival to the ER, symptoms largely resolved but he complained of
chest pressure and EKG showed STEMI.
HEAD CT 01/14/25
IMPRESSION:
No evidence of acute intracranial abnormality.
CHEST/ABDOMEN CTA 01/14/25
IMPRESSION: Examination is negative for thoracic or abdominal aortic dissection. Examination is negative for aortic aneurysm.
Decreased enhancement of the apex and distal left ventricle, in this patient with reported history of clinical diagnosis of myocardial infarction. There is a rounded focus of decreased enhancement within the left ventricular apex, which is likely
left ventricular thrombus.
Coronary artery calcifications are present. Please correlate with symptoms of and risk factors for coronary artery disease, with further workup as clinically appropriate.
5 mm focus of arterial phase enhancement within the inferior right lobe of the liver. Statistically, small arterial foci of enhancement are very likely benign, and no further imaging follow-up is felt to be needed.
Moderate to severe atrophy of the left kidney. Bilateral patchy scarring of the kidneys.
CARDIAC CATH 01/14/25
CONCLUSIONS
1. Successful stenting of the ostial to mid LAD with a 3.5 x 34 mm Kerman stent that was postdilated to high pressures with a 3.5 mm noncompliant balloon
BRAIN MRI 01/15/25
IMPRESSION:
1. MULTIPLE (approximately 10) SMALL ACUTE ISCHEMIC INFARCTS regionally distributed throughout the CORTICAL FLORES MATTER and SUBCORTICAL WHITE MATTER of the RIGHT FRONTAL and PARIETAL LOBES.
2. 2.5 mm chronic lacunar infarct in the right thalamus.
3. Moderate white matter leukoaraiosis in the frontal and parietal lobes.
4. Chronic microvascular ischemic disease in the marilyn.
5. Mild diffuse cerebral and cerebellar volume loss.
6. Severe discogenic degenerative disease at C3/C4 with a moderate-sized disc-osteophyte complex causing mild spinal cord compression and central canal stenosis.
TTE 01/15/25
CONCLUSIONS
1. Mild concentric left ventricular hypertrophy. Moderately reduced left
ventricular systolic function. Estimated left ventricular ejection fraction is
30 to 35% by visual assessment. Hypokinesis of the mid to apical anterior,
anteroseptal and anterolateral falk.
2. Normal right ventricular size and systolic function.
3. No significant valvular abnormalities.
4. No pericardial effusion.
No prior echocardiogram available for comparison.
STEMI
-s/p cardiac cath on 01/14 with stending to mid LAD
-continue aspirin/ Brilinta/ Statin
-continue metoprolol 50XL BID
-appreciate cardiology consult
Multiple small acute ischemic infarcts
-continue aspirin/Brilinta
-monitor on telemetry
-carotid US ordered
-neuro checks
-PT/OT/ST
-appreciate neurology consult
Heart Failure reduced EF
-[employer]PLICATION DEVELOPER Bumex
-EF 30-35% on TTE with WMA
-will need GDMT, follow up further cardiology recommendations
CKD
-[employer] APPLICATION DEVELOPER sodium bicarb
DVT PPx lovenox subQ - adjust for renal function
FULL CODE
51 minutes spent on patient care
Anticipated Discharge: 24 - 48 hours
Subjective/Interval History
-
Date of Service: January 16, 2025
no new complaints
feels coordination of left hand improving
no chest pain
Objective Data
-
Labs:
Laboratory Results
01/16/25
04:33
WBC 9.7
Hgb 15.4
Hct 44.5
Plt Count 283
Sodium 134 L
Potassium 4.4
Chloride 106
Carbon Dioxide 19 L
BUN 29 H
Creatinine 2.3 H
Glucose 107 H
Calcium 9.0
Vital Signs:
Vital Signs
Temp Pulse Resp BP Pulse Ox
98.4 F 63 20 130/85 97
01/16/25 07:39 01/16/25 06:00 01/16/25 07:39 01/16/25 04:01 01/16/25 07:39
I&O
01/15/25 01/16/25 01/17/25
06:59 06:59 06:59
Intake Total 980 / 980 240 / 240
Output Total 1100 / 1100 750 / 750
Balance -120 / -120 -510 / -510
Review of Systems
-
History Source: Patient
All other systems: Reviewed and negative
Physical Exam
-
General: No Apparent Distress
HEENT: PERRLA
Respiratory: Clear to Auscultation; Negative Wheezes
Cardiac: Regular Rhythm and S1/S2
GI: Soft and Nontender
Musculoskeletal: No Edema
Skin: Warm and Dry; Negative Rash
Neuro: AO x 3 and Other (no facial asymmetry, no pronator drift, 5/5 strength b/l LE, finger to thumb left hand improving )
Psych: Calm
Data Reviewed
-
Diagnostic Radiology: Report Reviewed by me
Labs: Labs Reviewed by me
--- NOTE | 2025-01-16 08:06 | W.PN.CARDCBS ---
Addendum entered and electronically signed by Phi Giraldo MD 01/16/25 10:33:
Attending addendum: Patient seen and examined. PA note reviewed and findings confirmed by me. Patient tells me that he will use cocaine a few times per year. He last used this past weekend. He also tells me that his baseline creatinine runs
around 3 mg/dl and was as high as 12 mg/dl when diagnosed several years ago. He follows with nephrology Dr. Lisa Mann about 1x every 4 months.
PE:
Gen: Lying in bed. NAD
HEENT: NC/AT, sclera anicteric
Lungs: Clear anterior and lateral
CV: RRR with normal S1 and S2.
Ext: no edema
IMPRESSION / RECOMMENDATIONS:
-Anterior wall myocardial infarction s/p LAD stent. Recent cocaine use
Brilinta is cost prohibitive : Will hold Brilinta today and start Plavix tomorrow with 600 mg loading dose approximately 24-hours after last Brilinta followed by 75 mg daily
Anterior wall motion abnormality with an estimated EF of 30-35%
High intensity statin therapy
Concern discussed with patient re: cocaine use and additive effect of beta blockade and unopposed alpha. Needs to stop cocaine for soooooo many reasons and never ever use again!!!! I was quite explicit and forceful in this discussion
CT possibly suggestive of apical filling defect that was not well appreciated on echo w Definity contrast
-Right sided CVA:
neurologic symptoms present prior to presentation
If there is concern for LV thrombus then oral AC would be reasonable. However, he would then need aspirin / Plavix / OAC for at least 1-2 weeks followed by Plavix and OAC
Will discuss with neurology and be sure they are comfortable with whatever antiplatelet / OAC strategy that is chosen
-Ischemic cardiomyopathy:
LVEF 30-35% will need to be reassessed in 40-days for ICD consideration
Baseline creatinine per his report is around 3 mg/dl and has been as high as 12 mg/dl several years ago. We will try to get records from nephrology. This may limit our ability to treat LV dysfunction with GUADALUPE/ARB or spironolactone.
Oral beta kingsley has continued. Certainly there is concern for beta kingsley and cocaine
May consider hydralazine and nitrates for HF vs GUADALUPE / ARB. Waiting for Cr. to plateau then will decide
-Renal insufficiency:
Follows with nephrology in [place], [place]
He states baseline creatinine is around 3 mg/dl and has been as high as 12 mg/dl several years ago. We will try to get records from nephrology. This may limit our ability to treat LV dysfunction with GUADALUPE/ARB or spironolactone.
Will call nephrology today and try to get records
-Hypertension:
May consider hydralazine and nitrates for HF vs GUADALUPE / ARB. Waiting for Cr. to plateau then will decide
Could add amlodipine but would prefer guieline directed therapy for LV dysfunction
-Hyperlipidemia:
High intensity statin therapy
Original Note:
Today's Communication / Plan
-
s/p LAD PCI
brain MRI positive for R sided CVAs
UDS positive for cocaine
continue asa, brilinta, statin, toprol
additional GDMT of CM as Cr allows
Impression / Plan
-
Assessment:
Presenting with weakness/stroke like symptoms
Anterior STEMI s/p LAD PCI
Ischemic CM
Possible LV thrombus by CT however none noted by echo
Multiple acute R sided CVAs by brain MRI
Recent cocaine use
HTN
HLD
CKD
Echo 01/15/25: EF 30-35%, hypokinesis of mid to apical anterior, anteroseptal, and anterolateral falk, no valve abnormalities
Plan:
-he presented with left hand numbness/weakness, slurred speech, and possible syncope
-Prehospital EKG showed evidence of anterior STEMI. as head CT was negative and arm symptoms had improved, underwent urgent cardiac catheterization 01/14 resulting in mid LAD PCI
-Neurology consulted. Underwent brain MRI which showed multiple (approximately 10) areas of acute infarct on right. for carotid US today
-Continue aspirin, Brilinta, Lipitor.
-Echocardiogram with EF 30 to 35%. Continue Toprol. Not presently candidate for GUADALUPE/ARB/Arni/Aldactone/SGLT2 inhibitor given creatinine up to 2.3.
-Holding Bumex today as does not appear grossly volume overloaded
-Possible LV thrombus noted by CT however none noted by echo 01/15
-Urine drug screen positive for cocaine, discussed with patient today. Patient states he did use once last week for a 'special occasion', but does not use regularly. Discussed high importance of cessation
-Cardiac rehab
-OP cardiac follow up arranged
Progress Note - Supervisor Fruit Grading
Subjective
Date of Service: January 16, 2025
no complaints. no CP, SOB, palpitations. hand weakness continues to improve
Objective
Labs:
01/16/25 04:33
01/16/25 04:33
Labs
Hgb 15.4 g/dL (13.0-18.0) 01/16/25 04:33
Hct 44.5 % (39.0-52.0) 01/16/25 04:33
Plt Count 283 10^3/uL (130-400) 01/16/25 04:33
PT 12.4 Sec (11.4-14.6) 01/14/25 21:51
INR 0.89 01/14/25 21:51
Sodium 134 mmol/L (135-145) L 01/16/25 04:33
Potassium 4.4 mmol/L (3.5-5.1) 01/16/25 04:33
BUN 29 mg/dl (9-20) H 01/16/25 04:33
Creatinine 2.3 mg/dL (0.7-1.3) H 01/16/25 04:33
Glucose 107 mg/dl (70-99) H 01/16/25 04:33
Troponins
01/14/25 01/14/25 01/15/25
21:51 23:37 06:01
Troponin I 3.270 H* 3.470 H* 10.000 H* D
01/15/25 01/15/25 01/16/25
12:12 20:40 04:33
Troponin I 11.800 H* 12.100 H* 12.000 H*
Vital Signs and I&O:
Vital Signs
Temp Pulse Resp BP Pulse Ox
98.4 F 61 20 133/88 97
01/16/25 07:39 01/16/25 07:45 01/16/25 07:39 01/16/25 07:41 01/16/25 07:39
Vital Signs
Temp Pulse Resp BP Pulse Ox
98.4 F 61 20 133/88 97
01/16/25 07:39 01/16/25 07:45 01/16/25 07:39 01/16/25 07:41 01/16/25 07:39
Intake & Output
01/14/25 01/15/25 01/16/25 01/17/25
07:59 07:59 07:59 07:59
Intake Total 980 / 1220 240 / 240
Output Total 1100 / 1100 750 / 750
Balance -120 / 120 -510 / -510
Physical Exam
Physical Exam
GEN: No distress, awake, alert, oriented x3
HEENT: supple, anicteric, mmm, eomi
LUNGS: CTA B/L, no wheezes/rales
CV: Reg, S1/S2, no murmur
ABD: soft, BS+, NT/ND
EXT: No cyanosis, clubbing, edema
NEURO: Gross non-focal
SKIN: Warm, pink, dry. No rash. R wrist site with ecchymoses, soft, NTTP.
[2025-01-16] MEDS: TOPROL XL 50 MG PO ×2 (10:01→19:36)
[2025-01-16] MEDS: PROTONIX 40 MG PO (10:01)
[2025-01-16] MEDS: NORVASC 5 MG PO (10:01)
[2025-01-16] MEDS: VITAMIN B1 100 MG PO (10:01)
[2025-01-16] MEDS: LOW STRENGTH ASPIRIN 81 MG PO (10:01)
[2025-01-16] MEDS: BRILINTA 90 MG PO (10:01)
--- NOTE | 2025-01-16 11:27 | W.PN.NEURO.1 ---
Today's Communication / Plan
-
.
Subjective/Objective
Subjective Data
Date of Service: January 16, 2025
Neurology follow-up note
24-hour events. Normotensive, afebrile.
Mr. Meyer reports no complaints. His left hand strength is near back to baseline. No reports of headaches, change in vision or sensation.
Brain MRI showed�acute right MCA territory cortical infarcts, chronic right thalamic infarct, moderate white matter leukoaraiosis in the frontal and parietal lobes in the marilyn., mild diffuse atrophy as well as severe cervical DJD at C3-C4.
Labs: Urine tox�positive for cocaine hemoglobin A1c�5.3, LDL�57
PMH: melanoma, HTN, DLP, CKD, left kidney atrophy, GERD, BPH
PSH: LAD PTCI (01/14/2025), melanoma resection TURP
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
FH: Not contributory to current presentation
All:NSAIDs
ROS: Constitutional: Negative. Negative for chills, fever and unexpected weight change.
HENT: Positive for hearing impairment and nasal congestion
Eyes: Negative. Negative for photophobia, pain and visual disturbance.
Respiratory: Negative for cough, choking and shortness of breath.
Cardiovascular: Negative for chest pain, palpitations and leg swelling.
Gastrointestinal: Negative for abdominal pain and vomiting.
Endocrine: Negative. Negative for cold intolerance.
Genitourinary: Negative for dysuria, flank pain and urgency.
Musculoskeletal: Negative for back pain, gait problem, neck pain and neck stiffness.
Skin: Positive for nasal and forehead abrasion
Allergic/Immunologic: Negative. Negative for immunocompromised state.
Neurological: Positive for left-hand clumsiness
Psychiatric/Behavioral: Negative for behavioral problems, confusion and hallucinations.
General: Well developed. In no acute distress.
Cardio: Regular rate and rhythm without murmur. Extremities are without cyanosis or edema.
Neuro:
Mental Status: Alert, oriented to person, place. Impaired attention and preserved comprehension good fund of knowledge. Follows complex requests across the midline. Comprehension, naming, and repetition intact.
Cranial Nerves: Pupils are equally round and reactive to light. EOMs full. Visual marquez full to confrontation. No ptosis. No nystagmus. V1-V3 intact to light touch and pinprick bilaterally, symmetric. Face symmetric. Minimal impaired
hearing AU. The palate elevated well. SCMs and traps 5/5. Tongue midline. No dysarthria.
Motor: Normal bulk and tone. No pronator or arm drift. Strength 5/5 throughout. No clonus.
Reflexes: 3 + in UE/LE, Yan's-neg BL.
Sensory: Normal pinprick, vibration and JPS.
Coordination: Reduced fine finger movements of the left (improved) no dysmetria or tremor.
Gait: deferred
Left forehead and nasal linear abrasions.
Assessment and Plan:
I. Acute right MCA territory cortical infarct. Likely etiology�embolic
II. Cocaine use
III. History of melanoma
IV. Cervical myelopathy
V. NSTEMI
-Continue Telemetry monitoring
-Continue antiplatelet therapy as per cardiology
-LDL goal less than 100.
-Follow-up carotid Doppler ultrasound
-Continue thiamine
-Addictive psychiatry consult
-DVT prophylaxis.
-Outpatient neurology and cardiology follow-up(Holter/ILR)
-Please recall neurology service with any questions or concerns
I personally reviewed all radiology and labs along with past medical records pertinent to current medical problems. Total time spent in patient care is 36 minutes.
Thank you for allowing us to participate in the care of this patient. Please do not hesitate to contact us with any questions or concerns.
Objective Data
Vital Signs
Temp Pulse Resp BP Pulse Ox
36.6 C 67 18 133/88 98
01/16/25 10:59 01/16/25 10:01 01/16/25 10:59 01/16/25 10:01 01/16/25 10:59
Lab Results
01/16/25 04:33
01/16/25 04:33
PT 12.4 Sec (11.4-14.6) 01/14/25 21:51
INR 0.89 01/14/25 21:51
Sodium 134 mmol/L (135-145) L 01/16/25 04:33
Potassium 4.4 mmol/L (3.5-5.1) 01/16/25 04:33
BUN 29 mg/dl (9-20) H 01/16/25 04:33
Glucose 107 mg/dl (70-99) H 01/16/25 04:33
Calcium 9.0 mg/dl (8.4-10.2) 01/16/25 04:33
LDL Cholesterol, Calc 57 mg/dl 01/15/25 06:01
Vitamin B12 430 pg/ml (239-931) 01/15/25 14:03
Ur Buprenorphine Negative (Negative) 01/15/25 16:00
Patient Allergies
NSAIDS (Non-Steroidal Anti-Inflamma Allergy (Verified 01/14/25 21:55)
Unknown
Vital Signs and Labs
-
Vital Signs and Labs:
Vital Signs
Temp Pulse Resp BP Pulse Ox
36.6 C 67 18 133/88 98
01/16/25 10:59 01/16/25 10:01 01/16/25 10:59 01/16/25 10:01 01/16/25 10:59
Lab Results
01/16/25 04:33
01/16/25 04:33
PT 12.4 Sec (11.4-14.6) 01/14/25 21:51
INR 0.89 01/14/25 21:51
Sodium 134 mmol/L (135-145) L 01/16/25 04:33
Potassium 4.4 mmol/L (3.5-5.1) 01/16/25 04:33
BUN 29 mg/dl (9-20) H 01/16/25 04:33
Glucose 107 mg/dl (70-99) H 01/16/25 04:33
Calcium 9.0 mg/dl (8.4-10.2) 01/16/25 04:33
LDL Cholesterol, Calc 57 mg/dl 01/15/25 06:01
Vitamin B12 430 pg/ml (239-931) 01/15/25 14:03
Ur Buprenorphine Negative (Negative) 01/15/25 16:00
Medications
-
Medications:
Generic Name Dose Route Start Last Admin
Trade Name Freq PRN Reason Stop Dose Admin
Acetaminophen 650 mg 01/14/25 23:18 01/15/25 05:00
Acetaminophen 325 Mg Tablet PO 02/11/25 23:17 650 mg
Q4HPRN PRN Administration
mild pain
Amlodipine Besylate 5 mg 01/15/25 08:00 01/16/25 10:01
Amlodipine 5 Mg Tablet PO 02/12/25 07:59 5 mg
DAILY GOPAL Administration
Aspirin 81 mg 01/15/25 08:00 01/16/25 10:01
Aspirin 81 Mg Chewable Tablet PO 02/12/25 07:59 81 mg
DAILY GOPAL Administration
Atorvastatin Calcium 80 mg 01/14/25 23:30 01/15/25 17:30
Atorvastatin (Lipitor) 80 Mg Tablet PO 02/11/25 23:29 80 mg
QPM GOPAL Administration
Bumetanide 1 mg 01/15/25 08:00 01/15/25 08:33
Bumetanide 1 Mg Tablet PO 02/12/25 07:59 1 mg
DAILY GOPAL Administration
Clopidogrel Bisulfate 75 mg 01/18/25 08:00
Clopidogrel 75 Mg Tablet PO 02/15/25 07:59
DAILY GOPAL
Clopidogrel Bisulfate 600 mg 01/17/25 08:00
Clopidogrel 300 Mg Tablet PO 01/17/25 08:01
ONCE ONE
Enoxaparin Sodium 30 mg 01/16/25 18:00
Enoxaparin Sodium 30 Mg/0.3 Ml Syringe SC 02/13/25 17:59
QPM GOPAL
Metoprolol Succinate 50 mg 01/15/25 08:00 01/16/25 10:01
Metoprolol 50 Mg Extended Release Tablet PO 02/12/25 07:59 50 mg
BID GOPAL Administration
Pantoprazole Sodium 40 mg 01/15/25 08:00 01/16/25 10:01
Pantoprazole 40 Mg Delayed Release Tablet PO 02/12/25 07:59 40 mg
DAILY GOPAL Administration
Sodium Chloride 0 flush 01/14/25 23:00
Sodium Chloride 0.9% (Flush) Syringe IV 02/11/25 22:59
PER PROTOCOL GOPAL
Thiamine HCl 100 mg 01/15/25 14:00 01/16/25 10:01
Thiamine 100 Mg Tablet PO 02/12/25 13:59 100 mg
DAILY GOPAL Administration
Home Medications
-
Home Medications
Vitamin D3 01/15/25
amlodipine 10 mg tablet 10 mg PO DAILY Blood Pressure 01/15/25
atorvastatin 20 mg tablet 20 mg PO QPM High Cholesterol 01/15/25
bumetanide 1 mg tablet 1 mg PO DAILY Fluid Retention/Swelling 01/15/25
metoprolol tartrate 100 mg tablet 100 mg PO DAILY Heart Disease/Condition 01/15/25
sodium bicarbonate 650 mg tablet 650 mg PO DAILY Electrolyte Repletion 01/15/25
terazosin 10 mg capsule 10 mg PO QPM Urinary Issue 01/15/25
--- NOTE | 2025-01-16 12:13 | CM ---
Chart reviewed. Patient is independent of ADLS, lives alone in a 1 [address], 3 SMITH, 0 DME. PT/OT evaluation recommending outpatient PT/OT. Plan is for the patient to return home. CM to follow
--- NOTE | 2025-01-16 15:30 | PTOTSP ---
CERTIFIED CREDIT COUNSELOR Evaluation
No signs of oral/pharyngeal dysphagia or aspiration.
Dysarthria resolved. Conversation level speech within functional limits. Cognitive screener score within normal limits (MOCA= 26/30). Signs of impulsivity noted during session. Per chart review, patient with history of cocaine use and new
multiple right sided strokes which may be contributing. Patient feels he is at baseline. Information provided about cognitive linguistic changes s/p stroke and outpatient rehabilitation for comprehensive evaluation.
[2025-01-16] MEDS: LOVENOX 30 MG SC (18:02)
[2025-01-16] MEDS: LIPITOR 80 MG PO (18:02)
--- NOTE | 2025-01-16 19:17 | PTCARENOTE ---
Pt denies any discomfort and states he is back at his baseline, NIH score zero. Pt up walking in halls independently without problem. Telemetry shows sinus rhythm with rare triplet noted. Carotid U/S done .
--- NOTE | 2025-01-16 20:53 | PTCARENOTE ---
Received patient at change of shift. Patient A&Ox3. Ambulating in hallways. Vitals stable. Right radial site clean, dry, and intact. Very ecchymotic, previous hematoma had resolved. NIH scale 0, neuro checks unremarkable. Discussed plan of care for
evening. Patient verbalized understanding. Call smith within reach.
[2025-01-17 03:38] VITALS: BP 126/86
[2025-01-17 03:41] VITALS: BP 126/86
[2025-01-17 04:11] LABS: Hematocrit 44.4 % (39.0-52.0); Hemoglobin 14.8 g/dL (13.0-18.0); Mean Corp Hgb Conc. 33.3 g/dL (33.0-37.0); Mean Corpuscular Volume 98.9 fL (80.0-94.0); Mean Platelet Volume 9.6 fL (7.4-10.4); Platelet Count 266 10^3/uL (130-400); Red Blood Cell Count 4.49 10^6/uL (4.70-6.10); White Blood Cell Count 8.8 10^3/uL (4.8-10.8)
[2025-01-17 04:28] LABS: Blood Urea Nitrogen 37 mg/dl (9-20); Carbon Dioxide 24 mmol/L (22-30); Chloride 106 mmol/L (98-107); Estimated Creatinine Clearance 26 ml/min; Glucose 105 mg/dl (70-99); Magnesium 2.2 mg/dl (1.6-2.3); Potassium 4.5 mmol/L (3.5-5.1); Sodium 137 mmol/L (135-145); eGFR 27.64
--- NOTE | 2025-01-17 07:58 | W.PN.HOSP.TC ---
Addendum entered and electronically signed by Rima Leo MD 01/17/25 11:56:
patient with slightly rising creatinine
had CTA with contrast and also cath
He is willing to stay another night to observe renal function
continue to hold Bumex
Original Note:
Today's Communication/Plan
-
TTE with definity
F/U further cardiology recommendations
Assessment / Plan
Assessment / Plan
Mr. Marino Meyer with hx essential HTN, HLD, CKD who presents to the ER by ambulance on 01/14 for sudden onset loss of consciousness, left arm weakness and difficulty ambulating. Upon arrival to the ER, symptoms largely resolved but he complained of
chest pressure and EKG showed STEMI.
HEAD CT 01/14/25
IMPRESSION:
No evidence of acute intracranial abnormality.
CHEST/ABDOMEN CTA 01/14/25
IMPRESSION: Examination is negative for thoracic or abdominal aortic dissection. Examination is negative for aortic aneurysm.
Decreased enhancement of the apex and distal left ventricle, in this patient with reported history of clinical diagnosis of myocardial infarction. There is a rounded focus of decreased enhancement within the left ventricular apex, which is likely
left ventricular thrombus.
Coronary artery calcifications are present. Please correlate with symptoms of and risk factors for coronary artery disease, with further workup as clinically appropriate.
5 mm focus of arterial phase enhancement within the inferior right lobe of the liver. Statistically, small arterial foci of enhancement are very likely benign, and no further imaging follow-up is felt to be needed.
Moderate to severe atrophy of the left kidney. Bilateral patchy scarring of the kidneys.
CARDIAC CATH 01/14/25
CONCLUSIONS
1. Successful stenting of the ostial to mid LAD with a 3.5 x 34 mm Trip stent that was postdilated to high pressures with a 3.5 mm noncompliant balloon
BRAIN MRI 01/15/25
IMPRESSION:
1. MULTIPLE (approximately 10) SMALL ACUTE ISCHEMIC INFARCTS regionally distributed throughout the CORTICAL FLORES MATTER and SUBCORTICAL WHITE MATTER of the RIGHT FRONTAL and PARIETAL LOBES.
2. 2.5 mm chronic lacunar infarct in the right thalamus.
3. Moderate white matter leukoaraiosis in the frontal and parietal lobes.
4. Chronic microvascular ischemic disease in the marilyn.
5. Mild diffuse cerebral and cerebellar volume loss.
6. Severe discogenic degenerative disease at C3/C4 with a moderate-sized disc-osteophyte complex causing mild spinal cord compression and central canal stenosis.
TTE 01/15/25
CONCLUSIONS
1. Mild concentric left ventricular hypertrophy. Moderately reduced left
ventricular systolic function. Estimated left ventricular ejection fraction is
30 to 35% by visual assessment. Hypokinesis of the mid to apical anterior,
anteroseptal and anterolateral falk.
2. Normal right ventricular size and systolic function.
3. No significant valvular abnormalities.
4. No pericardial effusion.
No prior echocardiogram available for comparison.
Vascular US
IMPRESSION:
RIGHT: Heterogeneous plaque is identified in the carotid bulb. Carotid velocity measurements are consistent with less than 50% internal carotid artery stenosis. Vertebral artery flow is antegrade.
LEFT: Calcified plaque is identified in the carotid bulb. Carotid velocity measurements are consistent with less than 50% internal carotid artery stenosis. Vertebral artery flow is antegrade.
STEMI
-s/p cardiac cath on 01/14 with stending to mid LAD
-continue aspirin/ Plavix / Statin
-continue metoprolol 50XL BID
-appreciate cardiology consult
Multiple small acute ischemic infarcts
-continue aspirin/Plavix
-monitor on telemetry
-carotid US ordered --> no significant stenosis
-neuro checks
-PT/OT/ST
-appreciate neurology consult
-plan for echo with definity today to rule out thrombus
Heart Failure reduced EF
-STEPDOWN NURSE Bumex
-EF 30-35% on TTE with WMA
-new start metoprolol
-F/U further cardiology recommendations
CKD
-STEPDOWN NURSE sodium bicarb
DVT PPx lovenox subQ - adjust for renal function
FULL CODE
51 minutes spent on patient care
Anticipated Discharge: Within 24 hours
Subjective/Interval History
-
Date of Service: January 17, 2025
feeling well this morning
no new complaints
Objective Data
-
Labs:
Laboratory Results
01/17/25
03:44
WBC 8.8
Hgb 14.8
Hct 44.4
Plt Count 266
Sodium 137
Potassium 4.5
Chloride 106
Carbon Dioxide 24
BUN 37 H
Creatinine 2.5 H
Glucose 105 H
Calcium 9.0
Vital Signs:
Vital Signs
Temp Pulse Resp BP Pulse Ox
98.3 F 70 16 126/86 98
01/17/25 03:41 01/17/25 06:00 01/17/25 03:41 01/17/25 03:41 01/17/25 03:41
I&O
01/16/25 01/17/25 01/18/25
06:59 06:59 06:59
Intake Total 240 / 240 480 / 480
Output Total 750 / 750
Balance -510 / -510 480 / 480
Review of Systems
-
History Source: Patient
All other systems: Reviewed and negative
Physical Exam
-
General: No Apparent Distress
HEENT: PERRLA
Respiratory: Clear to Auscultation; Negative Wheezes
Cardiac: Regular Rhythm and S1/S2
GI: Soft and Nontender
Musculoskeletal: No Edema
Skin: Warm and Dry; Negative Rash
Neuro: AO x 3 and Other (no facial asymmetry, no pronator drift, 5/5 strength b/l LE, finger to thumb left hand improving )
Psych: Calm
Data Reviewed
-
Diagnostic Radiology: Report Reviewed by me
Labs: Labs Reviewed by me
--- NOTE | 2025-01-17 07:58 | W.PN.CARDCBS ---
Addendum entered and electronically signed by Socorro Wadsworth MD 01/17/25 11:44:
Echocardiogram with LVEF approximately 45% mild hypokinesis is noted. No obvious left ventricular apical thrombus seen with contrast. Continue current medical treatment.
Reassess 40-day echo as an outpatient.
Patient may be discharged.
Addendum entered and electronically signed by Socorro Wadsworth MD 01/17/25 11:25:
He will be stable for discharge pending echo.
Addendum entered and electronically signed by Socorro Wadsworth MD 01/17/25 11:24:
I saw and examined the patient.
The Manager Semiconductor's note was reviewed and I agree with the note.
Comment: Patient with no complaints.
Exam heart regular rate and rhythm 2/6 basal systolic murmur. No edema. Decreased breath sounds at the bases. Few crackles right lower base. Prior CT scan without abnormality seen. gravity prospecting observer stable.
Status post ST elevation myocardial infarction with LAD PCI and ischemic cardiomyopathy.
Continue post PCI care with dual antiplatelet therapy.
Lipid-lowering goal LDL less than 70 ideally in the 50s
Continue new guideline directed medical therapy for heart failure with reduced ejection fraction. Treatment limited given renal insufficiency and not a candidate for GUADALUPE inhibitor/ARB/ARNI. Not a candidate for Aldactone. Not a candidate for
SGLT2 inhibitor.
Continue to maximize. Increase carvedilol.
If heart rate remains above 70 consider Corlanor.
Given that patient is on isosorbide as part of heart failure regimen not a candidate for Verquvo.
Check outpatient labs including BMP in 1 week. Follow-up with nephrology
Question prior of LV apical thrombus. Await echocardiogram with contrast. If noted would need to consider oral anticoagulation with warfarin.
Cardiac rehab as an outpatient
Avoid stimulants and drug use.
Original Note:
Today's Communication / Plan
-
repeat echo with definity to reassess for LV thrombus
continue asa, plavix, lipitor, toprol. could consider addition of hydralazine, nitrates as not candidate for guadalupe/arb/arni/aldactone/sglt2
likely resume po bumex 1mg daily with BMP in 1 week with results to OP cigar head piercer
OP cardiac follow up arranged. will need repeat echo 40 days post revasc to reassess EF
Impression / Plan
-
Assessment:
Presenting with weakness/stroke like symptoms
Anterior STEMI s/p LAD PCI
Ischemic CM
Possible LV thrombus by CT however none noted by echo
Multiple acute R sided CVAs by brain MRI
Recent cocaine use
HTN
HLD
CKD
Echo 01/15/25: EF 30-35%, hypokinesis of mid to apical anterior, anteroseptal, and anterolateral falk, no valve abnormalities
Plan:
-he presented with left hand numbness/weakness, slurred speech, and possible syncope
-Prehospital EKG showed evidence of anterior STEMI. as head CT was negative and arm symptoms had improved, underwent urgent cardiac catheterization 01/14 resulting in mid LAD PCI
-Neurology consulted. Underwent brain MRI which showed multiple (approximately 10) areas of acute infarct on right. carotid US with <50% stenosis B/L
-Continue aspirin. brilinta transitioned to plavix as cost prohibitive.
-continue statin.
-Echocardiogram with EF 30 to 35%. Continue Toprol. Not candidate for GUADALUPE/ARB/Arni/Aldactone/SGLT2 inhibitor given chronic renal insufficiency with review of records from primary cigar head piercer, Dr. Lisa Mann, showing baseline Cr between
2.4-2.7. could consider for hydralazine/nitrates.
-will need repeat echo to reassess EF in 40 days and if remains reduced consider for ICD.
-Cr up to 2.5 today. on bumex 1mg daily prior to admission, presently on hold
-Possible LV thrombus noted by CT however none noted by echo 01/15. will repeat echo with definity today to reassess
-Urine drug screen positive for cocaine, discussed high importance of cessation. Patient states he uses occasionally
-Cardiac rehab
-OP cardiac follow up arranged
-d/w nursing. d/w hospitalist
Progress Note - Bricklayer Apprentice
Subjective
Date of Service: January 17, 2025
no CP. reports feeling well, eager for DC. reports significant improvement in L hand weakness from admission
Objective
Labs:
01/17/25 03:44
01/17/25 03:44
Labs
Hgb 14.8 g/dL (13.0-18.0) 01/17/25 03:44
Hct 44.4 % (39.0-52.0) 01/17/25 03:44
Plt Count 266 10^3/uL (130-400) 01/17/25 03:44
PT 12.4 Sec (11.4-14.6) 01/14/25 21:51
INR 0.89 01/14/25 21:51
Sodium 137 mmol/L (135-145) 01/17/25 03:44
Potassium 4.5 mmol/L (3.5-5.1) 01/17/25 03:44
BUN 37 mg/dl (9-20) H 01/17/25 03:44
Creatinine 2.5 mg/dL (0.7-1.3) H 01/17/25 03:44
Glucose 105 mg/dl (70-99) H 01/17/25 03:44
Troponins
01/14/25 01/14/25 01/15/25
21:51 23:37 06:01
Troponin I 3.270 H* 3.470 H* 10.000 H* D
01/15/25 01/15/25 01/16/25
12:12 20:40 04:33
Troponin I 11.800 H* 12.100 H* 12.000 H*
Vital Signs and I&O:
Vital Signs
Temp Pulse Resp BP Pulse Ox
98.3 F 70 16 126/86 98
01/17/25 03:41 01/17/25 06:00 01/17/25 03:41 01/17/25 03:41 01/17/25 03:41
Vital Signs
Temp Pulse Resp BP Pulse Ox
98.3 F 70 16 126/86 98
01/17/25 03:41 01/17/25 06:00 01/17/25 03:41 01/17/25 03:41 01/17/25 03:41
Intake & Output
01/14/25 01/15/25 01/16/25 01/17/25
07:59 07:59 07:59 07:59
Intake Total 980 / 1220 240 / 420 480 / 480
Output Total 1100 / 1100 750 / 750
Balance -120 / 120 -510 / -330 480 / 480
Physical Exam
Physical Exam
GEN: No distress, awake, alert, oriented x3
HEENT: supple, anicteric, mmm, eomi
LUNGS: CTA B/L, no wheezes/rales
CV: Reg, S1/S2, no murmur
ABD: soft, BS+, NT/ND
EXT: No cyanosis, clubbing, edema
NEURO: Gross non-focal
SKIN: Warm, pink, dry. No rash. R wrist site with ecchymoses, soft, NTTP.
[2025-01-17 08:17] VITALS: BP 131/81
[2025-01-17] MEDS: PLAVIX 600 MG PO (09:03)
[2025-01-17] MEDS: PROTONIX 40 MG PO (09:03)
[2025-01-17] MEDS: LOW STRENGTH ASPIRIN 81 MG PO (09:03)
[2025-01-17] MEDS: NORVASC 5 MG PO (09:04)
[2025-01-17] MEDS: VITAMIN B1 100 MG PO (09:04)
[2025-01-17] MEDS: TOPROL XL 50 MG PO ×2 (09:04→20:03)
--- NOTE | 2025-01-17 11:08 | CARDSERVLU ---
Echocardiogram with Lumason completed after protocol screening completed. Allergies verified.
Patent IV site: _Right arm site clear____
IV site flushed with 0.9% NaCl pre and post administration.
Diluted bolus method utilized to enhance visualization of ventricular falk.
Total volume given: ___5_ mL
Patient tolerated all procedures well without complications.
--- NOTE | 2025-01-17 14:44 | PN.CDI ---
CDI
- -
CDI:
Physician Documentation Request
Admit Date: 01/14/25 23:17
Dear Doctor Felipa,
Please review the following and provide your response in the progress notes.
Clinical Indicators:
Pt admitted with STEMI and multiple small acute ischemic infarcts.
H&P: 'Chronic kidney disease. Details of this are unknown, but laboratory data is notable for a baseline creatinine of 2.1.'
01/17 Progress notes: 'patient with slightly rising creatinine - had CTA with contrast and also cath
He is willing to stay another night to observe renal function -continue to hold Bumex
Laboratory Tests
01/15/25 01/16/25 01/17/25
06:01 04:33 03:44
Creatinine 2.0 H 2.3 H 2.5 H
eGFR 36.13 30.55 27.64
Clarify which of the following accurately represents the patient's renal status:
Acute kidney injury (with type, if appropriate on chronic kidney disease (CKD)
CKD only
Other
Criteria for ZOIE*
1 Increase in serum creatinine by > or = to 0.3 mg/dL (> or = to 26.5 micromol/L) within 48 hours, OR
2 Increase in serum creatinine to > or = to 1.5 times baseline, which is known or presumed to have occurred within 7 days, OR
3 Urine volume < 0.5 nL/kg/hour for six hours
Stages of Chronic Kidney Disease*
Level Description GFR
G1 Normal or High >90
G2 Mildly decreased 60-89
G3a Mildly to moderately decreased 45-59
G3b Moderately to severely decreased 30-44
G4 Severely decreased 15-29
G5 Kidney failure <15
Use of terms such as suspected, likely, concern for, or probable (associated with a specific diagnosis that is being evaluated, monitored, or treated as if it exists) are acceptable and can be coded in the inpatient setting, when documented at the
time of discharge.
Thank you,
Khadra Oropeza RN, BSN
CDI Specialist
[facility]
Please use your independent medical judgment in providing your response.
*Source: Kidney Disease: Improving Global Outcomes (KDIGO) 2012
[2025-01-17 15:27] VITALS: BP 106/66
[2025-01-17] MEDS: LOVENOX 30 MG SC (18:22)
[2025-01-17] MEDS: LIPITOR 80 MG PO (18:22)
--- NOTE | 2025-01-17 19:40 | PTCARENOTE ---
Pt denies any discomfort, up walking in halls. Telemetry shows sinus rhythm. Plan to check Cr. on 01/18.
[2025-01-17 20:04] VITALS: BP 150/88
--- NOTE | 2025-01-17 21:36 | PTCARENOTE ---
Received patient at change of shift. Patient A&Ox3, ambulating in leal. Right radial site open to air, bruised, resolved hematoma, soft to touch. Vitals stable. Discussed plan of care. Patient verbalized understanding. Call smith within reach.
[2025-01-17 22:59] VITALS: BP 116/73
[2025-01-18 04:50] VITALS: BP 118/82
[2025-01-18 05:33] LABS: Blood Urea Nitrogen 37 mg/dl (9-20); Carbon Dioxide 25 mmol/L (22-30); Chloride 104 mmol/L (98-107); Estimated Creatinine Clearance 29 ml/min; Glucose 108 mg/dl (70-99); Potassium 4.5 mmol/L (3.5-5.1); Sodium 136 mmol/L (135-145); eGFR 30.55
[2025-01-18 07:52] VITALS: BP 140/79
--- NOTE | 2025-01-18 08:22 | W.PN.HOSP.TC ---
Addendum entered and electronically signed by Rima Leo MD 01/18/25 08:58:
CKD only - creatinine within baseline (was 2.77 4 months ago)
Original Note:
Today's Communication/Plan
-
OK for DC today
Assessment / Plan
Assessment / Plan
Mr. Marino Meyer with hx essential HTN, HLD, CKD who presents to the ER by ambulance on 01/14 for sudden onset loss of consciousness, left arm weakness and difficulty ambulating. Upon arrival to the ER, symptoms largely resolved but he complained of
chest pressure and EKG showed STEMI.
HEAD CT 01/14/25
IMPRESSION:
No evidence of acute intracranial abnormality.
CHEST/ABDOMEN CTA 01/14/25
IMPRESSION: Examination is negative for thoracic or abdominal aortic dissection. Examination is negative for aortic aneurysm.
Decreased enhancement of the apex and distal left ventricle, in this patient with reported history of clinical diagnosis of myocardial infarction. There is a rounded focus of decreased enhancement within the left ventricular apex, which is likely
left ventricular thrombus.
Coronary artery calcifications are present. Please correlate with symptoms of and risk factors for coronary artery disease, with further workup as clinically appropriate.
5 mm focus of arterial phase enhancement within the inferior right lobe of the liver. Statistically, small arterial foci of enhancement are very likely benign, and no further imaging follow-up is felt to be needed.
Moderate to severe atrophy of the left kidney. Bilateral patchy scarring of the kidneys.
CARDIAC CATH 01/14/25
CONCLUSIONS
1. Successful stenting of the ostial to mid LAD with a 3.5 x 34 mm [place] stent that was postdilated to high pressures with a 3.5 mm noncompliant balloon
BRAIN MRI 01/15/25
IMPRESSION:
1. MULTIPLE (approximately 10) SMALL ACUTE ISCHEMIC INFARCTS regionally distributed throughout the CORTICAL FLORES MATTER and SUBCORTICAL WHITE MATTER of the RIGHT FRONTAL and PARIETAL LOBES.
2. 2.5 mm chronic lacunar infarct in the right thalamus.
3. Moderate white matter leukoaraiosis in the frontal and parietal lobes.
4. Chronic microvascular ischemic disease in the marilyn.
5. Mild diffuse cerebral and cerebellar volume loss.
6. Severe discogenic degenerative disease at C3/C4 with a moderate-sized disc-osteophyte complex causing mild spinal cord compression and central canal stenosis.
TTE 01/15/25
CONCLUSIONS
1. Mild concentric left ventricular hypertrophy. Moderately reduced left
ventricular systolic function. Estimated left ventricular ejection fraction is
30 to 35% by visual assessment. Hypokinesis of the mid to apical anterior,
anteroseptal and anterolateral falk.
2. Normal right ventricular size and systolic function.
3. No significant valvular abnormalities.
4. No pericardial effusion.
No prior echocardiogram available for comparison.
Vascular US
IMPRESSION:
RIGHT: Heterogeneous plaque is identified in the carotid bulb. Carotid velocity measurements are consistent with less than 50% internal carotid artery stenosis. Vertebral artery flow is antegrade.
LEFT: Calcified plaque is identified in the carotid bulb. Carotid velocity measurements are consistent with less than 50% internal carotid artery stenosis. Vertebral artery flow is antegrade.
STEMI
-s/p cardiac cath on 01/14 with stending to mid LAD
-continue aspirin/ Plavix / Statin
-continue metoprolol 50XL BID
-appreciate cardiology consult
Multiple small acute ischemic infarcts
-continue aspirin/Plavix
-monitor on telemetry
-carotid US ordered --> no significant stenosis
-neuro checks
-PT/OT/ST
-appreciate neurology consult
-s/p echo with definity without thrombus
Heart Failure reduced EF
-MORNING CAREGIVER Bumex - resume
-EF 30-35% on TTE with WMA
-new start metoprolol
-F/U further cardiology recommendations
CKD
-MORNING CAREGIVER sodium bicarb
-creatinine improved this AM and remains within baseline
DVT PPx lovenox subQ - adjust for renal function
FULL CODE
51 minutes spent on patient care
Anticipated Discharge: Today
Subjective/Interval History
-
Date of Service: January 18, 2025
he is feeling well
ready to go home
no chest pain
Objective Data
-
Labs:
Laboratory Results
01/18/25
04:55
Sodium 136
Potassium 4.5
Chloride 104
Carbon Dioxide 25
BUN 37 H
Creatinine 2.3 H
Glucose 108 H
Calcium 9.0
Vital Signs:
Vital Signs
Temp Pulse Resp BP Pulse Ox
98.5 F 65 16 140/79 98
01/18/25 06:08 01/18/25 07:52 01/18/25 07:52 01/18/25 07:52 01/18/25 07:52
I&O
01/17/25 01/18/25 01/19/25
06:59 06:59 06:59
Intake Total 480 / 480 180 / 180
Balance 480 / 480 180 / 180
Review of Systems
-
History Source: Patient
All other systems: Reviewed and negative
Physical Exam
-
General: No Apparent Distress
HEENT: PERRLA
Respiratory: Clear to Auscultation; Negative Wheezes
Cardiac: Regular Rhythm and S1/S2
GI: Soft and Nontender
Musculoskeletal: No Edema
Skin: Warm and Dry; Negative Rash
Neuro: AO x 3 and Other (no facial asymmetry, no pronator drift, 5/5 strength b/l LE, finger to thumb left hand improving )
Psych: Calm
Data Reviewed
-
Diagnostic Radiology: Report Reviewed by me
Labs: Labs Reviewed by me
[2025-01-18] MEDS: NORVASC 5 MG PO (08:27)
[2025-01-18] MEDS: LOW STRENGTH ASPIRIN 81 MG PO (08:27)
[2025-01-18] MEDS: PROTONIX 40 MG PO (08:27)
[2025-01-18] MEDS: TOPROL XL 50 MG PO (08:27)
[2025-01-18] MEDS: VITAMIN B1 100 MG PO (08:27)
[2025-01-18] MEDS: PLAVIX 75 MG PO (08:27)
[2025-01-18] MEDS: BUMEX 1 MG PO (08:30)
[2025-01-18] MEDS: IMDUR (EXTENDED RELEASE) 30 MG PO (10:18)
--- NOTE | 2025-01-18 10:34 | W.PN.CARDCBS ---
Addendum entered and electronically signed by Yumiko Goodman PA-C 01/18/25 17:00:
given results of brain MRI, could consider for OP cardiac monitoring to rule out atrial arrhythmia, however CVA suspected secondary to cocaine use.
Addendum entered and electronically signed by Ap Trevino DO 01/18/25 14:23:
I saw and examined the patient.
The Retail Sales Representative's note was reviewed and I agree with the note.
Comment:
Patient resting comfortably without complaint. No acute events overnight. Telemetry demonstrates sinus rhythm.
GEN: No distress, awake, alert, oriented x3
HEENT: supple, anicteric, mmm, eomi
LUNGS: CTA B/L, no wheezes/rales
CV: Reg, S1/S2, no murmur
ABD: soft, BS+, NT/ND
EXT: No cyanosis, clubbing, edema
NEURO: Gross non-focal
SKIN: Warm, pink, dry. No rash. R wrist site with ecchymoses, soft, NTTP.
A/P as below
Patient doing well status post anterior STEMI status post LAD PCI as well as multiple acute right-sided CVAs by brain MRI
Continue aspirin, Plavix, statin, Toprol, Norvasc
Patient tolerated Imdur 30 mg daily today, continue
Plan for resuming oral diuresis as outpatient with planned lab work in 1 week
Repeat echocardiogram greater than 40 days
Outpatient cardiac follow-up, cardiac rehab, stable to discharge home from cardiac standpoint
Original Note:
Today's Communication / Plan
-
Continue aspirin, Plavix, statin, Toprol 50mg BID, Imdur 30mg daily, Norvasc 5mg daily
Consider addition of hydralazine as outpatient
Resume po bumex 1mg daily in AM. BMP in 1 week
Cardiac rehab
repeat echo in 40 days
OP cardiac follow up arranged
ok for DC to home
Impression / Plan
-
Assessment:
Presenting with weakness/stroke like symptoms
Anterior STEMI s/p LAD PCI
Ischemic CM
Possible LV thrombus by CT however none noted by echo
Multiple acute R sided CVAs by brain MRI
Recent cocaine use
HTN
HLD
CKD
Echo 01/15/25: EF 30-35%, hypokinesis of mid to apical anterior, anteroseptal, and anterolateral falk, no valve abnormalities
ECHO 01/17/25: Definity used, normal LV size, EF 45%, hypokinesis of mid to distal septal, distal anterior wall and apex, no LV thrombus seen
Plan:
-he presented with left hand numbness/weakness, slurred speech, and possible syncope
-Prehospital EKG showed evidence of anterior STEMI. as head CT was negative and arm symptoms had improved, underwent urgent cardiac catheterization 01/14 resulting in mid LAD PCI
-Neurology consulted. Underwent brain MRI which showed multiple (approximately 10) areas of acute infarct on right. carotid US with <50% stenosis B/L
-Continue aspirin. brilinta transitioned to plavix as cost prohibitive.
-continue statin.
-Echocardiogram with EF 30 to 35% on 01/15, repeated 01/17 to reassess for LV thrombus - no evidence of thrombus and EF 45%. Continue Toprol. Not candidate for GUADALUPE/ARB/Arni/Aldactone/SGLT2 inhibitor given chronic renal insufficiency with review of
records from primary hat and cap drying room attendant, Dr. Lisa Mann, showing baseline Cr between 2.4-2.7. Will add Imdur 30 mg daily, he was counseled on potential side effects of this medication. Could consider addition of hydralazine as outpatient if blood
pressure tolerates
-will need repeat echo to reassess EF in 40 days and if remains reduced consider for ICD.
-Cr trending back down to 2.3 today, appears to be close to baseline upon review of outpatient nephrology records. on bumex 1mg daily prior to admission, presently on hold, would plan to resume in 24 hours with repeat BMP in 1 week
-Urine drug screen positive for cocaine, discussed high importance of cessation. Patient states he uses occasionally
-Cardiac rehab
-OP cardiac follow up arranged
-ok for DC to home today
-d/w nursing, hospitalist
Progress Note - Chief Green Officer
Subjective
Date of Service: January 18, 2025
Feeling well. Reports left hand 99% back to normal. No chest pain or shortness of breath overnight
Objective
Labs:
01/17/25 03:44
01/18/25 04:55
Labs
Hgb 14.8 g/dL (13.0-18.0) 01/17/25 03:44
Hct 44.4 % (39.0-52.0) 01/17/25 03:44
Plt Count 266 10^3/uL (130-400) 01/17/25 03:44
PT 12.4 Sec (11.4-14.6) 01/14/25 21:51
INR 0.89 01/14/25 21:51
Sodium 136 mmol/L (135-145) 01/18/25 04:55
Potassium 4.5 mmol/L (3.5-5.1) 01/18/25 04:55
BUN 37 mg/dl (9-20) H 01/18/25 04:55
Creatinine 2.3 mg/dL (0.7-1.3) H 01/18/25 04:55
Glucose 108 mg/dl (70-99) H 01/18/25 04:55
Troponins
01/15/25 01/15/25 01/16/25
12:12 20:40 04:33
Troponin I 11.800 H* 12.100 H* 12.000 H*
Vital Signs and I&O:
Vital Signs
Temp Pulse Resp BP Pulse Ox
98.5 F 70 16 140/79 98
01/18/25 06:08 01/18/25 09:00 01/18/25 07:52 01/18/25 08:30 01/18/25 08:30
Vital Signs
Temp Pulse Resp BP Pulse Ox
98.5 F 70 16 140/79 98
01/18/25 06:08 01/18/25 09:00 01/18/25 07:52 01/18/25 08:30 01/18/25 08:30
Intake & Output
01/16/25 01/17/25 01/18/25 01/19/25
07:59 07:59 07:59 07:59
Intake Total 240 / 420 480 / 480 180 / 180
Output Total 750 / 750
Balance -510 / -330 480 / 480 180 / 180
Physical Exam
Physical Exam
GEN: No distress, awake, alert, oriented x3
HEENT: supple, anicteric, mmm, eomi
LUNGS: CTA B/L, no wheezes/rales
CV: Reg, S1/S2, no murmur
ABD: soft, BS+, NT/ND
EXT: No cyanosis, clubbing, edema
NEURO: Gross non-focal
SKIN: Warm, pink, dry. No rash. R wrist site with ecchymoses, soft, NTTP.
[2025-01-18 11:28] VITALS: BP 100/76
--- NOTE | 2025-01-18 11:50 | W.DS.TRANS ---
DC Summary - Certified Nurses Aide
-
Discharge Instructions:
Discharge Diagnosis/Procedures STEMI, s/p angioplasty and stent to Left
Anterior Descending artery
Diet Low Cholesterol
Activity No strenuous activity
Additional Activity No strenuous activity for 1 week
Driving Restrictions No driving for 24 hours
Blood Work BMP in 1 week
Others Tests repeat echo in 40 days
Other Services Cardiac Rehab
Specialty Instructions Weigh Daily
Instructions:
Stand-Alone Forms: DC Instructions- Cath/EP Lab
Changes to Home Medications: Yes
Discharge Medications:
DC Medications w/original date entered in [facility]
bumetanide 1 mg tablet 1 mg PO DAILY Fluid Retention/Swelling 01/15/25
sodium bicarbonate 650 mg tablet 650 mg PO DAILY Electrolyte Repletion 01/15/25
terazosin 10 mg capsule 10 mg PO QPM Urinary Issue 01/15/25
amlodipine 5 mg tablet 5 mg PO DAILY #30 tabs 01/17/25
aspirin 81 mg chewable tablet 81 mg PO DAILY #30 tabs 01/17/25
atorvastatin 80 mg tablet 80 mg PO QPM #30 tabs 01/17/25
clopidogrel 75 mg tablet 75 mg PO DAILY #120 tabs 01/17/25
metoprolol succinate 50 mg tablet,extended release 24 hr 50 mg PO BID #60 tabs 01/17/25
pantoprazole 40 mg tablet,delayed release 40 mg PO DAILY #30 tabs 01/17/25
isosorbide mononitrate 30 mg tablet,extended release 24 hr 30 mg PO DAILY #30 tabs 01/18/25
Home Medication Changes
Avoid any cocaine; Your heart cannot tolerate any use.
Stop Metoprolol tartrate 100mg daily - this is replaced with long acting Metoprolol (succinate) to take twice a day
Stop Amlodipine 10mg, this is replaced with a lower dose, 5mg daily.
You are newly started on:
Aspirin 81mg daily
Plavix 75mg daily (you will need to be on this medication x 1 year) - You will need refills
Atorvastatin 40mg in evenings (to treat cholesterol)
Imdur 30mg daily
Protonix will help protect the stomach lining while on Aspirin and Plavix
Pending Results: No
--- NOTE | 2025-01-18 13:20 | PTCARENOTE ---
Addendum entered by Lydia Muñoz RN 01/18/25 14:08:
D/C to home via wc accompanied by staff.
Original Note:
D/C instructions given to patient, verbalizes understanding. INT D/C'd, telemetry D/C'd, personal belongings packed and sent home with patient. right radial ecchymotic, forearm, good pulse. patient waiting for his ride.
--- NOTE | 2025-01-18 14:44 | W.DCSUMMARY ---
Discharge Summary
Discharge Data
Date of Admission: 01/14/25
Date of Discharge: 01/18/25
-
Pending Results: No
Hospital Course
Discharging Physician : Dr. Rima Leo
Disposition : Home, outpatient occupational therapy
Principal Discharge diagnosis : STEMI, s/p angioplasty and stent to Left Anterior Descending artery, multiple small acute ishcemic infarcts
Hospital Course :
Mr. Marino Meyer with hx essential HTN, HLD, CKD who presents to the ER by ambulance on 01/14 for sudden onset loss of consciousness, left arm weakness and difficulty ambulating.
Upon arrival to the ER, symptoms largely resolved but he complained of chest pressure and EKG showed STEMI. He underwent urgent cardiac cath on 01/14 s/p mid LAD PCI. TTE with EF 30-35%. He is newly started on Aspirin, Plavix, Atorvastatin,
Metoprolol XL and Imdur.
Patient had an MRI to work up left arm weakness and was found to have multiple small acute ischemic infarcts. He was continued on Aspirin/Plavix/Atorvastatin. Further work-up included carotid US, negative for severe stenosis. TTE with and without
Definity negative for thrombus. He will follow up as outpatient for further cardiac monitoring.
Patient reported intermittent rare cocaine use and was educated on importance of completely avoiding.
BMP ordered as outpatient in one week.
Time spent on discharge was 35 minutes.
DC Med Instructions:
Avoid any cocaine; Your heart cannot tolerate any use.
Stop Metoprolol tartrate 100mg daily - this is replaced with long acting Metoprolol (succinate) to take twice a day
Stop Amlodipine 10mg, this is replaced with a lower dose, 5mg daily.
You are newly started on:
Aspirin 81mg daily
Plavix 75mg daily (you will need to be on this medication x 1 year) - You will need refills
Atorvastatin 40mg in evenings (to treat cholesterol)
Imdur 30mg daily
Protonix will help protect the stomach lining while on Aspirin and Plavix
Important imaging findings :
HEAD CT 01/14/25
IMPRESSION:
No evidence of acute intracranial abnormality.
CHEST/ABDOMEN CTA 01/14/25
IMPRESSION: Examination is negative for thoracic or abdominal aortic dissection. Examination is negative for aortic aneurysm.
Decreased enhancement of the apex and distal left ventricle, in this patient with reported history of clinical diagnosis of myocardial infarction. There is a rounded focus of decreased enhancement within the left ventricular apex, which is likely
left ventricular thrombus.
Coronary artery calcifications are present. Please correlate with symptoms of and risk factors for coronary artery disease, with further workup as clinically appropriate.
5 mm focus of arterial phase enhancement within the inferior right lobe of the liver. Statistically, small arterial foci of enhancement are very likely benign, and no further imaging follow-up is felt to be needed.
Moderate to severe atrophy of the left kidney. Bilateral patchy scarring of the kidneys.
CARDIAC CATH 01/14/25
CONCLUSIONS
1. Successful stenting of the ostial to mid LAD with a 3.5 x 34 mm [place] stent that was postdilated to high pressures with a 3.5 mm noncompliant balloon
BRAIN MRI 01/15/25
IMPRESSION:
1. MULTIPLE (approximately 10) SMALL ACUTE ISCHEMIC INFARCTS regionally distributed throughout the CORTICAL FLORES MATTER and SUBCORTICAL WHITE MATTER of the RIGHT FRONTAL and PARIETAL LOBES.
2. 2.5 mm chronic lacunar infarct in the right thalamus.
3. Moderate white matter leukoaraiosis in the frontal and parietal lobes.
4. Chronic microvascular ischemic disease in the marilyn.
5. Mild diffuse cerebral and cerebellar volume loss.
6. Severe discogenic degenerative disease at C3/C4 with a moderate-sized disc-osteophyte complex causing mild spinal cord compression and central canal stenosis.
TTE 01/15/25
CONCLUSIONS
1. Mild concentric left ventricular hypertrophy. Moderately reduced left
ventricular systolic function. Estimated left ventricular ejection fraction is
30 to 35% by visual assessment. Hypokinesis of the mid to apical anterior,
anteroseptal and anterolateral falk.
2. Normal right ventricular size and systolic function.
3. No significant valvular abnormalities.
4. No pericardial effusion.
No prior echocardiogram available for comparison.
Vascular US 01/16/25
IMPRESSION:
RIGHT: Heterogeneous plaque is identified in the carotid bulb. Carotid velocity measurements are consistent with less than 50% internal carotid artery stenosis. Vertebral artery flow is antegrade.
LEFT: Calcified plaque is identified in the carotid bulb. Carotid velocity measurements are consistent with less than 50% internal carotid artery stenosis. Vertebral artery flow is antegrade.
Procedure findings :
Discharge Plan
-
Patient Disposition: Home (Routine Discharge)
Discharge Diagnosis/Procedures: STEMI, s/p angioplasty and stent to Left Anterior Descending artery
Diet: Low Cholesterol
Activity: No strenuous activity
Additional Activity: No strenuous activity for 1 week
Driving Restrictions: No driving for 24 hours
Blood Work: BMP in 1 week
Others Tests: repeat echo in 40 days
Other Services: Cardiac Rehab
Specialty Instructions: Weigh Daily- Call MD for wt gain/loss 3 lbs overnight/5 lbs in 1 week
Stand Alone Forms: DC Instructions- Cath/EP Lab
Referrals:
[facility] [Outside] - 02/05/25 1:00 pm
(Cardiac Rehab Orientation appointment� and� First Exercise appointment is on 02/05/25 at 1 PM.
The Cardiac Rehab gym is located on the first floor of the [facility].)
Felicity Henning PA-C [Specified Professional Personl] - 02/05/25 9:40 am (Cardiology followup appointment)
Fuentes Sierra MD [Family Provider] - in less than 1 week
Additional Discharge Medication Instructions: Avoid any cocaine; Your heart cannot tolerate any use.
Stop Metoprolol tartrate 100mg daily - this is replaced with long acting Metoprolol (succinate) to take twice a day
Stop Amlodipine 10mg, this is replaced with a lower dose, 5mg daily.
You are newly started on:
Aspirin 81mg daily
Plavix 75mg daily (you will need to be on this medication x 1 year) - You will need refills
Atorvastatin 40mg in evenings (to treat cholesterol)
Imdur 30mg daily
Protonix will help protect the stomach lining while on Aspirin and Plavix
Prescriptions:
New
atorvastatin 80 mg Tablet
80 mg PO QPM Qty: 30 0RF
metoprolol succinate 50 mg Tablet Extended Release 24 Hr
50 mg PO BID Qty: 60 0RF
clopidogrel 75 mg Tablet
75 mg PO DAILY Qty: 120 0RF
amlodipine 5 mg Tablet
5 mg PO DAILY Qty: 30 0RF
pantoprazole 40 mg Tablet,Delayed Release (Dr/Ec)
40 mg PO DAILY Qty: 30 0RF
aspirin 81 mg Tablet,Chewable
81 mg PO DAILY Qty: 30 0RF
isosorbide mononitrate 30 mg Tablet Extended Release 24 Hr
30 mg PO DAILY Qty: 30 0RF
Continued
sodium bicarbonate 650 mg Tablet
650 mg PO DAILY
bumetanide 1 mg Tablet
1 mg PO DAILY
terazosin 10 mg Capsule
10 mg PO QPM
Discontinued
amlodipine 10 mg Tablet
10 mg PO DAILY
atorvastatin 20 mg Tablet
20 mg PO QPM
metoprolol tartrate 100 mg Tablet
100 mg PO DAILY
Vitamin D3
Discharge Orders:
Discharge Patient (As Directed); Ordered 01/18/25
Ordered By: Rima Leo
Care Plan Goals
Care Plan Goals:
Problem: Readiness for enhanced knowledge related to diagnosis and treatment plan
Goal: Understand your diagnosis and treatment plan needs, including medications if applicable.
Instructions: Know your diagnosis, underlying causes and treatment plan options, including medications if applicable. Consult with your health care team to learn about your diagnosis and treatment plan, including medications if applicable.
Discharge Date and Time
Discharge Date/Time: 01/18/25 14:09
Print Language: DOMINICAN
== END 2025-01-18 14:09 | disposition home or self-care (01) | DRG 981 ==
LOC: IVU 23:17
PROVIDERS: Nurse Practitioner; ADMITTING PHYSICIAN Internal Medicine Interventional Cardiology; ATTENDING PHYSICIAN Student in an Organized Health Care Education/Training Program; CONSULT PHYSICIAN Psychiatry & Neurology Neurology; EMERGENCY PHYSICIAN Emergency Medicine; FAMILY PHYSICIAN Internal Medicine
PROC: B211YZZ Fluoroscopy of Multiple Coronary Arteries using Other Contrast (ICD-10-PCS; 2025-01-14)
PROC: 4A023N7 Measurement of Cardiac Sampling and Pressure, Left Heart, Percutaneous Approach (ICD-10-PCS; 2025-01-14)
PROC: 027034Z Dilation of Coronary Artery, One Artery with Drug-eluting Intraluminal Device, Percutaneous Approach (ICD-10-PCS; 2025-01-14)
DX: I63.411 Cerebral infarction due to embolism of right middle cerebral artery (principal); I21.02 ST elevation (STEMI) myocardial infarction involving left anterior descending coronary artery; I50.22 Chronic systolic (congestive) heart failure; I13.0 Hypertensive heart and chronic kidney disease with heart failure and stage 1 through stage 4 chronic kidney disease, or unspecified chronic kidney disease; G93.40 Encephalopathy, unspecified; E78.5 Hyperlipidemia, unspecified; N18.9 Chronic kidney disease, unspecified; G83.24 Monoplegia of upper limb affecting left nondominant side; R47.81 Slurred speech; I25.5 Ischemic cardiomyopathy; F14.90 Cocaine use, unspecified, uncomplicated; S00.31XA Abrasion of nose, initial encounter; I25.10 Atherosclerotic heart disease of native coronary artery without angina pectoris; I51.3 Intracardiac thrombosis, not elsewhere classified; G46.7 Other lacunar syndromes; K21.9 Gastro-esophageal reflux disease without esophagitis; R29.810 Facial weakness; W18.30XA Fall on same level, unspecified, initial encounter; N40.0 Benign prostatic hyperplasia without lower urinary tract symptoms; Z85.820 Personal history of malignant melanoma of skin; Z82.49 Family history of ischemic heart disease and other diseases of the circulatory system; Z79.899 Other long term (current) drug therapy; Z86.73 Personal history of transient ischemic attack (TIA), and cerebral infarction without residual deficits
CPT/HCPCS: 93308; 70450; 70551; 71275; 74175; 80048; 80053; 80061; 80306; 80307; 82607; 82746; 82962; 83036; 83735; 84484; 85025; 85027; 85347; 85610; 92523; 93005; 93306; 93458; 93880; 97112; 97162; 97166; 99291; C1725; C1769; C1874; C1887; C1894; C9600; C9606; Q9950; Q9967

== ENCOUNTER 2025-02-25 14:07 | Outpatient (RCR) | payer MEDICARE, SELFPAY | END 2025-02-25 23:59 | disposition home or self-care (01) | LOC: CRHB 14:07 | PROVIDERS: ATTENDING PHYSICIAN Internal Medicine Interventional Cardiology | DX: I21.01 ST elevation (STEMI) myocardial infarction involving left main coronary artery (principal); Z95.5 Presence of coronary angioplasty implant and graft; I25.10 Atherosclerotic heart disease of native coronary artery without angina pectoris; I25.2 Old myocardial infarction | CPT/HCPCS: 93797; 93798 ==

== ENCOUNTER → 2025-03-01 14:47 | Outpatient (REF) | payer MEDICARE, SELFPAY ==
--- NOTE | 2025-03-01 15:45 | CARDSERVLU ---
Echocardiogram with [facility]ason completed after protocol screening completed. Allergies verified.
Patent IV site: _Right antecubital 22 G PC____
IV site flushed with 0.9% NaCl pre and post administration.
Diluted bolus method utilized to enhance visualization of ventricular falk.
Total volume given: __3__ mL
Patient tolerated all procedures well without complications.
Heplock D/C ed at 1542, site clear, no redness, no edema. Pressure held for few minutes as pt on anticoagulants, no bleeding, 2x2 applied and taped. pt offers no complaints.
== END ==
LOC: RCS 14:47
PROVIDERS: ATTENDING PHYSICIAN Physician Assistant Medical; FAMILY PHYSICIAN Internal Medicine
DX: I25.5 Ischemic cardiomyopathy (principal); I25.10 Atherosclerotic heart disease of native coronary artery without angina pectoris
CPT/HCPCS: 93306; 93797; 93798; Q9950

== ENCOUNTER 2025-03-27 14:14 | Outpatient (RCR) | payer MEDICARE, SELFPAY | END 2025-03-27 23:59 | disposition home or self-care (01) | LOC: CRHB 14:14 | PROVIDERS: ATTENDING PHYSICIAN Internal Medicine Interventional Cardiology | DX: I21.01 ST elevation (STEMI) myocardial infarction involving left main coronary artery (principal); I25.2 Old myocardial infarction; Z95.5 Presence of coronary angioplasty implant and graft; I25.10 Atherosclerotic heart disease of native coronary artery without angina pectoris | CPT/HCPCS: 93797; 93798; G0422; G0423 ==

== ENCOUNTER 2025-04-26 14:27 | Outpatient (RCR) | payer MEDICARE, SELFPAY ==
[2025-04-12 13:16] LABS: Glucose - Point of Care 139 mg/dl (70-99)
== END 2025-04-26 23:59 | disposition home or self-care (01) ==
LOC: CRHB 14:27
PROVIDERS: ATTENDING PHYSICIAN Internal Medicine Interventional Cardiology
DX: I21.01 ST elevation (STEMI) myocardial infarction involving left main coronary artery (principal); I25.10 Atherosclerotic heart disease of native coronary artery without angina pectoris (principal); Z95.5 Presence of coronary angioplasty implant and graft; I25.2 Old myocardial infarction
CPT/HCPCS: 82962; G0422; G0423

== ENCOUNTER 2025-05-08 13:26 | Outpatient (RCR) | payer MEDICARE, SELFPAY ==
[2025-05-03 12:42] LABS: HDL Cholesterol 48 mg/dl; LDL Cholesterol, Calculated -3 mg/dl; Total Cholesterol 86 mg/dl (50-199); Triglyceride 208 mg/dl (10-149); Very Low Density Lipoprotein 41 mg/dl (0-30)
== END 2025-05-08 15:19 | disposition home or self-care (01) ==
LOC: CRHB 13:26
PROVIDERS: ATTENDING PHYSICIAN Internal Medicine Interventional Cardiology; FAMILY PHYSICIAN Internal Medicine
DX: I21.01 ST elevation (STEMI) myocardial infarction involving left main coronary artery (principal); Z95.5 Presence of coronary angioplasty implant and graft; I25.10 Atherosclerotic heart disease of native coronary artery without angina pectoris; I25.2 Old myocardial infarction
CPT/HCPCS: 36415; 80061; G0422; G0423

== ENCOUNTER → 2025-06-18 11:10 | Outpatient (REF) | payer MEDICARE, SELFPAY ==
[2025-06-18 12:11] LABS: ALT (SGPT) 28 U/L (0-50); AST (SGOT) 30 U/L (17-59); Albumin 3.6 g/dl (3.5-5.0); Alkaline Phosphatase 137 U/L (38-126); Blood Urea Nitrogen 36 mg/dl (9-20); Calcium 8.6 mg/dl (8.4-10.2); Carbon Dioxide 23 mmol/L (22-30); Chloride 108 mmol/L (98-107); Glucose 110 mg/dl (70-99); HDL Cholesterol 64 mg/dl; LDL Cholesterol, Calculated 82 mg/dl; Potassium 3.7 mmol/L (3.5-5.1); Sodium 138 mmol/L (135-145); Total Protein 6.6 g/dl (6.3-8.2); Very Low Density Lipoprotein 30 mg/dl (0-30); eGFR 35.91
== END ==
LOC: REG 11:10
PROVIDERS: ATTENDING PHYSICIAN Physician Assistant Medical; FAMILY PHYSICIAN Internal Medicine
DX: I25.5 Ischemic cardiomyopathy (principal); I21.09 ST elevation (STEMI) myocardial infarction involving other coronary artery of anterior wall; E78.5 Hyperlipidemia, unspecified
CPT/HCPCS: 36415; 80053; 80061

== ENCOUNTER → 2025-08-19 13:21 | Outpatient (REF) | payer MEDICARE, SELFPAY ==
[2025-08-19 15:10] LABS: Uric Acid 11.5 mg/dl (3.5-8.5)
== END ==
LOC: REG 13:21
PROVIDERS: ATTENDING PHYSICIAN Podiatrist Primary Podiatric Medicine; FAMILY PHYSICIAN Internal Medicine
DX: M10.072 Idiopathic gout, left ankle and foot (principal); M25.572 Pain in left ankle and joints of left foot; M19.072 Primary osteoarthritis, left ankle and foot
CPT/HCPCS: 36415; 84550

== ENCOUNTER 2025-08-27 14:43 | Outpatient (RCR) | payer MEDICARE, SELFPAY | END 2025-08-27 23:59 | disposition home or self-care (01) | LOC: RPT 14:43 | PROVIDERS: ATTENDING PHYSICIAN Surgery; FAMILY PHYSICIAN Internal Medicine | DX: R15.9 Full incontinence of feces (principal); Z73.6 Limitation of activities due to disability; M54.50 Low back pain, unspecified; R32 Unspecified urinary incontinence; R39.15 Urgency of urination; M72.2 Plantar fascial fibromatosis; M79.672 Pain in left foot; I25.2 Old myocardial infarction | CPT/HCPCS: 97110; 97112; 97161; 97530 ==

== ENCOUNTER 2025-09-24 08:18 | Outpatient (RCR) | payer MEDICARE, SELFPAY | END 2025-09-24 23:59 | disposition home or self-care (01) | LOC: RPT 08:18 | PROVIDERS: ATTENDING PHYSICIAN Surgery; FAMILY PHYSICIAN Internal Medicine | DX: R15.9 Full incontinence of feces (principal); Z73.6 Limitation of activities due to disability; M54.50 Low back pain, unspecified; R32 Unspecified urinary incontinence; R39.15 Urgency of urination; M72.2 Plantar fascial fibromatosis; M79.672 Pain in left foot; I25.2 Old myocardial infarction | CPT/HCPCS: 97014; 97110; 97112; 97530 ==

== ENCOUNTER 2025-10-08 09:15 | Outpatient (RCR) | payer MEDICARE, SELFPAY | END 2025-10-08 14:19 | disposition home or self-care (01) | LOC: RPT 09:15 | PROVIDERS: ATTENDING PHYSICIAN Surgery; FAMILY PHYSICIAN Internal Medicine | DX: R15.9 Full incontinence of feces (principal); Z73.6 Limitation of activities due to disability; M54.50 Low back pain, unspecified; R32 Unspecified urinary incontinence; R39.15 Urgency of urination; M72.2 Plantar fascial fibromatosis; M79.672 Pain in left foot; I25.2 Old myocardial infarction | CPT/HCPCS: 97110; 97112; 97530 ==

== ENCOUNTER → 2025-10-10 14:25 | Outpatient (REF) | payer MEDICARE, SELFPAY | LOC: RAD 14:25 | PROVIDERS: ATTENDING PHYSICIAN Family Medicine; FAMILY PHYSICIAN Internal Medicine | DX: M79.89 Other specified soft tissue disorders (principal) | CPT/HCPCS: 93971 ==